=== PATIENT | female | born 1940 | race Caucasian/White ===

== ENCOUNTER 2018-11-12 09:30 | Observation (INO) | payer OTHER ==
--- NOTE | 2018-11-12 09:51 | PDOC ---
Attending Attestation - Resident Resident Name: Darian Duff - ED Attending Attestation I have performed the following: I have examined & evaluated the patient, The case was reviewed & discussed with the resident, I agree w/resident's findings & plan, Exceptions are as noted - HPI HPI: 11/12/18 11:54 78 yo F h/o DM, HTN, CVA in the past She awoke this morning at her baseline She was noted by family to have a syncopal episode while in bed Pt was noted to be unresponsive for 8 minutes No shaking, no tongue biting pt was noted to diaphoretic when this happened Pt now complains only of headache NO chest pain Pt was admitted to outside hospital for the same Work up included CT, MRI, VQ scan - no acute findings reported Plan was for loop recorder - Physicial Exam PE: 11/12/18 11:55 Pt is awake and alert, interactive with examiner RRR, DELORIS noted 3/6 CTA bilaterally, no rhonchi No abdominal tenderness or distention No lower extremity edema - Medical Decision Making 11/12/18 09:53 EKG - NSR rate of 66 bpm, LAD, no st elevation or depression, intervals nml, t wave flattening II, III, aVF, v3-v6, poor R wave progression 11/12/18 11:57 Pt presents with syncopal episode as well as diaphoresis S/p multiple admission to [facility] for similar complaints Unclear cause of patient's presentation Syncope, Seizure, Arrhythmia, Intracranial pathology Will do: Labs, CT head, CXR Admit 11/13/18 18:44 Laboratory Tests 11/12/18 11/12/18 11:30 11:30 WBC 4.9 Hgb 12.5 Hct 38.0 Plt Count 193 BUN 18 Creatinine 0.8 Creatine Kinase 189 Creatine Kinase Index 1.0 CK-MB (CK-2) 2.0 Troponin I < 0.02
--- NOTE | 2018-11-12 09:53 | PDOC ---
History of Present Illness - General Stated Complaint: Syncope/Near Syncope Time Seen by Provider: 11/12/18 09:35 - History of Present Illness Initial Comments: 11/12/18 10:52 Patient is a 78F with history of HTN, DVT (on eliquis), DM, R breast ca, parkinson's, distant stroke here today complaining of syncope that onset this morning. Patient and aide state that she was feeling weak and was diaphoretic before heading up to bed where she became unresponsive. This lasted for ~5 minutes before she regained consciousness, witnessed by aide. No shaking, tongue biting, urinary incontinence was noted. No confusion later. Patient is also complaining of a headache that onset at 2am gradually, located across frontal aspect of head. No fevers, chills, nausea, vomiting, cough, chest pain. Patient was recently admitted and discharged from [facility] for similar presentation. US and CTA negative per patient's family report. Discharged 6 days ago. Past History - Past Medical History Allergies/Adverse Reactions: Allergies Allergy/AdvReac Type Severity Reaction Status Date / Time Iodinated Contrast- Oral and Allergy Verified 11/12/18 10:27 IV Dye Home Medications: Ambulatory Orders Amlodipine Besylate 2.5 mg PO DAILY 11/12/18 Apixaban [Eliquis] 2.5 mg PO BID 11/12/18 Atorvastatin Ca [Lipitor] 10 mg PO HS 11/12/18 Enalapril Maleate [Vasotec] 20 mg PO DAILY 11/12/18 Furosemide [Lasix] 20 mg PO BID 11/12/18 Review of Systems - Review of Systems Able to Perform ROS?: Yes Comments:: 11/12/18 11:29 GENERAL/CONSTITUTIONAL: No fever or chills. No weakness. HEAD, EYES, EARS, NOSE AND THROAT: No change in vision. No sore throat. CARDIOVASCULAR: No chest pain or shortness of breath RESPIRATORY: No cough, wheezing, or hemoptysis. GASTROINTESTINAL: No nausea, vomiting, diarrhea or constipation. GENITOURINARY: No dysuria, frequency, or change in urination. MUSCULOSKELETAL: No joint or muscle swelling or pain. No neck or back pain. SKIN: No rash NEUROLOGIC: +headache, vertigo, +loss of consciousness, no change in strength/ sensation. ENDOCRINE: No increased thirst. No abnormal weight change HEMATOLOGIC/LYMPHATIC: No anemia, easy bleeding, +history of blood clots. ALLERGIC/IMMUNOLOGIC: No hives or skin allergy. *Physical Exam - Physical Exam Comments: 11/12/18 11:31 GENERAL: Awake, alert, and fully oriented, in no acute distress HEAD: No signs of trauma, normocephalic, atraumatic EYES: PERRLA, EOMI, sclera anicteric, conjunctiva clear ENT: Auricles normal inspection, hearing grossly normal, nares patent, oropharynx clear without exudates. Moist mucosa NECK: Normal ROM, supple, no lymphadenopathy, JVD, or masses LUNGS: No distress, speaks full sentences, clear to auscultation bilaterally HEART: Regular rate and rhythm, normal S1 and S2, no murmurs, rubs or gallops, peripheral pulses normal and equal bilaterally. ABDOMEN: Soft, nontender, normoactive bowel sounds. No guarding, no rebound. No masses EXTREMITIES: Normal inspection, Normal range of motion, no edema. No clubbing or cyanosis. NEUROLOGICAL: Cranial nerves II through XII grossly intact. Normal speech, no focal sensorimotor deficits SKIN: Warm, Dry, normal turgor, no rashes or lesions noted. ED Treatment Course - LABORATORY CBC & Chemistry Diagram: 11/12/18 11:30 11/12/18 11:30 Medical Decision Making - Medical Decision Making 11/12/18 11:32 Patient is a 78F with history of HTN, DVT (on eliquis), DM, R breast ca, parkinson's, distant stroke with syncope and headache. Vitals normal and stable. DDx includes, but is not limited to: ACS, arrhythmia, sah. Will evaluate with cardiac workup, head ct, admit for obs. EKG shows NSR with rate of 66. No st elevations/depressions. Left axis deviation. Q waves in inferior and lateral leads. No significant t wave changes. No prior EKGs available for comparison. CBC normal. CMP normal. Trop negative. Patient admitted to obs. *DC/Admit/Observation/Transfer Diagnosis at time of Disposition: Syncope - Discharge Dispostion Condition at time of disposition: Stable Decision to Admit order: Yes - Referrals - Patient Instructions - Post Discharge Activity
[2018-11-12 10:13] VITALS: BMI 28.1
[2018-11-12] MEDS ORDERED: ACETAMINOPHEN 325 MG TABLET (FP) PO ONE (10:46)
[2018-11-12 11:47] LABS: EOS % 1.1 % (0-4.5); HEMOGLOBIN 12.5 GM/dL (10.7-15.3); LYMPH % 21.8 % (8-40); MCH 27.6 pg (25.7-33.7); MCHC 32.7 g/dl (32.0-36.0); MEAN CELL VOLUME 84.3 fl (80-96); MEAN PLT VOLUME 9.5 fl (7.5-11.1); MONO % 7.7 % (3.8-10.2); NEUT % 68.4 % (42.8-82.8); PLATELET COUNT 193 K/MM3 (134-434); RBC 4.51 M/mm3 (3.60-5.2); RDW 14.9 % (11.6-15.6); WHITE BLOOD COUNT 4.9 K/mm3 (4.0-10.0)
[2018-11-12] MEDS ORDERED: ACETAMINOPHEN 325 MG TABLET (FP) ONE (11:55)
[2018-11-12 12:12] LABS: ALBUMIN 3.3 g/dl (3.4-5.0); ALK PHOS 95 U/L (45-117); ANION GAP 6 MMOL/L (8-16); BILIRUBIN,TOTAL 0.4 mg/dL (0.2-1); BLOOD UREA NITROGEN 18 mg/dL (7-18); CHLORIDE 107 mmol/L (98-107); CO2 25 mmol/L (21-32); CREATININE 0.8 mg/dL (0.55-1.3); GLUCOSE,RANDOM 153 mg/dL (74-106); MAGNESIUM 2.1 mg/dL (1.8-2.4); POTASSIUM 4.3 mmol/L (3.5-5.1); SGOT/AST 23 U/L (15-37); SGPT/ALT 22 U/L (13-61); SODIUM 138 mmol/L (136-145); TOT PROT 7.2 g/dl (6.4-8.2)
--- NOTE | 2018-11-12 13:03 | CON.CARD ---
Consult Consult Specialty:: Cardiology Referred by:: ER Reason for Consultation:: Syncope - History of Present Illness Chief Complaint: Syncope History of Present Illness: 78 year old woman with pmh HTN, DVT on eliquis, DMII, HLD, R breast Ca, Parkinsons disease, h/o CVA years ago, recurrent syncope episodes recently admitted 11/04/18-11/07/[address] [facility] with syncope that occurred while sitting down eating with preceding dizziness, sob, diaphoresis and LOC for 5 minutes. She had a recent Holter 05/2018 that was wnl. Echo during recent admission was wnl as below. Nuclear stress test 12/2016 wnl and V/Q scan 11/04/18 showed no evidence of pulmonary embolism. She was recommended to fup with cardiology and neurology and consider an ILR implant. She was discharged home but came to ER today with recurrent episode of syncope witnessed by her CUTTER GAS. Pt was again sitting to eat today when she became ligtheaded, diaphoretic, and lost consciousness. Her CUTTER GAS rubbed her chest and she woke up after approx 5 minutes. She does state her chest is sore currently from the sternal rub her CUTTER GAS performed. Denies sob, palpitations, pnd, orthopnea, or LE edema. No other episodes of chest pain. TTE 11/05/18 Normal left ventricular size. Normal left ventricular wall motion and ejection fraction. Normal right ventricular size. Normal right ventricular function. Technically difficult study. Intravenous echo contrast Definity was administered to improve visualization of wall motion. V/Q 11/04: negative for PE Holter 06/12/18 Sinus Rhythm Atrial premature depolarization(s) Short run(s) of self-terminating atrial tachycardia Ventricular premature depolarizations NM MPI 01/10/17 No evidence of abnormal myocardial perfusion both on stress and rest images. Preserved LV systolic function. TTE 12/19/16: Normal - History Source History Provided By: Patient, Family Member, Caregiver Limitations to Obtaining History: No Limitations - Past Medical History [employer] PROFESSION[employer]: Yes: CVA, Parkinson's, Syncope Cardio/Vascular: Yes: Deep Vein Thrombosis, HTN, Hyperlipdemia Heme/Onc: Yes: Cancer Endocrine: Yes: Diabetes Mellitus - Alcohol/Substance Use Hx Alcohol Use: No - Smoking History Smoking history: Never smoked Have you smoked in the past 12 months: No - Social History Usual Living Arrangement: Other ([facility]) ADL: Support Services History of Recent Travel: No Home Medications - Allergies Allergies/Adverse Reactions: Allergies Allergy/AdvReac Type Severity Reaction Status Date / Time Iodinated Contrast- Oral and Allergy Verified 11/12/18 10:27 IV Dye Family Disease History - Family Disease History Family History: Denies Review of Systems - Review of Systems Constitutional: reports: Diaphoresis, Malaise, Weakness. denies: No Symptoms, Chills, Fever, Lethargy, Loss of Appetite, Night Sweats, Unintentional Wgt. Loss , Other Eyes: denies: No Symptoms, Blind Spots, Blurred Vision, Double Vision, Eye Pain , Floaters, Photophobia, Recent Change in Vision, Other HENT: denies: No Symptoms, Difficult Swallowing, Ear Discharge, Ear Pain, Epistaxis, Gingival Bleeding, Hearing Loss, Mouth Swelling, Nasal Congestion, Ocular Prosthesis, Throat Pain, Toothache, Ringing in Ears, Other Neck: denies: No Symptoms, Decreased ROM, Lumps, Pain on Movement, Stiffness, Swollen Glands, Tenderness, Other Cardiovascular: denies: No Symptoms, Chest Pain, Edema, Palpitations, Shortness of Breath, Other Respiratory: denies: No Symptoms, Cough, Exercise Intolerance, Hemoptysis, Orthopnea, PND, Snoring, SOB, SOB on Exertion, Wheezing, Other Gastrointestinal: denies: No Symptoms, Abdominal Pain, Bloating, Constipation, Diarrhea, Dysphagia, Indigestion, Melena, Nausea, Rectal Bleeding, Vomiting, Vomiting Blood, Other Genitourinary: denies: No Symptoms, Burning, Discharge, Dysuria, Flank Pain, Frequency, Hematuria, Incontinence, Lesions, Menses, Pain, Testicular Mass, Testicular Pain, Testicular Swelling, Urgency, Vaginal Bleeding, Other Breasts: denies: No Symptoms Reported, See HPI, Breast Implants, Discharge from Nipple, Lumps, Pain, Skin Changes, Other Musculoskeletal: denies: No Symptoms, Back Pain, Crepitus, Decreased ROM, Extremity Pain, Joint Pain, Joint Swelling, Muscle Pain, Muscle Cramps, Muscle Weakness, Other Integumentary: denies: No Symptoms, Blister, Bruising, Change in Color, Eczema, Erythema, Incision, Lesions, Lump, Pallor, Pruritis, Rash, Wound, Other Neurological: reports: Change in LOC, Dizziness, Syncope, Weakness. denies: No Symptoms, Change in Speech, Confusion, Headache, Incoordination, Numbness, Parasthesia, Pre-Existing Deficit, Seizure, Tremors, Unsteady Gait, Other Endocrine: denies: No Symptoms, Excessive Sweating, Flushing, Increased Hunger, Increased Thirst, Intolerance to Cold, Intolerance to Heat, Unexplained Weight Gain, Unexplained Weight Loss, Other Hematology/Lymphatic: denies: No Symptoms, Easily Bruised, Excessive Bleeding, Swollen Glands, Other Psychiatric: denies: No Symptoms, Altered Sleep Pattern, Anxiety, Depression, Hallucinations, Panic, Paranoia, Suicidal, Other - Risk Factors Known Risk Factors: Yes: Age, Diabetes Mellitus, Hypercholesterolemia, Hypertension, Prior NH /Emb Stroke Vital Signs: Vital Signs Temperature 98.5 F 11/12/18 10:04 Pulse Rate 65 11/12/18 10:15 Respiratory Rate 16 11/12/18 10:15 Blood Pressure 165/75 11/12/18 10:15 O2 Sat by Pulse Oximetry (%) 100 11/12/18 10:15 Constitutional: Yes: No Distress, Calm Eyes: Yes: Conjunctiva Clear, EOM Intact, PERRL HENT: Yes: Atraumatic, Normocephalic Neck: Yes: Supple, Trachea Midline Respiratory: Yes: Regular, CTA Bilaterally. No: Rales, Rhonchi, SOB, Wheezes Gastrointestinal: Yes: Normal Bowel Sounds, Soft. No: Distention, Tenderness Cardiovascular: Yes: Regular Rate and Rhythm. No: Bradycardia, Tachycardia, Pulse Irregular, Gallop, Rub, Varicosities JVD: No Carotid Bruit: No PMI: Non-Displaced Heart Sounds: Yes: S1, S2. No: Split S2, S3, S4, Clicks, Gallop, Rub, Bruit Murmur: Yes: Systolic Murmur, Grade 2 Musculoskeletal: Yes: Muscle Weakness Extremities: Yes: WNL Edema: Yes Edema: LLE: Trace, RLE: Trace Peripheral Pulses WNL: Yes Peripheral Pulses: 2+ Left Doralis Pedis, 2+ Right Dorsalis Pedis Integumentary: Yes: WNL Neurological: Yes: Alert, Oriented, Tremors Psychiatric: Yes: Alert, Oriented - Other Data Labs, Other Data: CBC, BMP 11/12/18 11:30 11/12/18 11:30 INR, PTT INR Cancelled 11/12/18 11:30 Troponin, BNP 11/12/18 11:30 Troponin I < 0.02 Troponin, BNP 11/12/18 11:30 Troponin I < 0.02 ekg nsr 66bpm, lad, inferior and lateral q waves Echo: Report Reviewed Imaging - Results Chest X-ray: Report Reviewed, Image Reviewed EKG: Report Reviewed, Image Reviewed Other: Report Reviewed, Image Reviewed Assessment/Plan 78 year old woman with pmh HTN, DVT on eliquis, DMII, HLD, R breast Ca, Parkinsons disease, h/o CVA years ago, recurrent syncope episodes recently admitted 11/04/18-11/07/[address] [facility] with syncope that occurred while sitting down eating with preceding dizziness, sob, diaphoresis and LOC for 5 minutes. She had a recent Holter 05/2018 that was wnl. Echo during recent admission was wnl as below. Nuclear stress test 12/2016 wnl and V/Q scan 11/04/18 showed no evidence of pulmonary embolism. She was recommended to fup with cardiology and neurology and consider an ILR implant. She was discharged home but came to ER today with recurrent episode of syncope witnessed by her CUTTER GAS. Pt was again sitting to eat today when she became ligtheaded, diaphoretic, and lost consciousness. Her CUTTER GAS rubbed her chest and she woke up after approx 5 minutes. She does state her chest is sore currently from the sternal rub her CUTTER GAS performed. Denies sob, palpitations, pnd, orthopnea, or LE edema. No other episodes of chest pain. TTE 11/05/18 Normal left ventricular size. Normal left ventricular wall motion and ejection fraction. Normal right ventricular size. Normal right ventricular function. Technically difficult study. Intravenous echo contrast Definity was administered to improve visualization of wall motion. V/Q 11/04: negative for PE Holter 06/12/18 Sinus Rhythm Atrial premature depolarization(s) Short run(s) of self-terminating atrial tachycardia Ventricular premature depolarizations NM MPI 01/10/17 No evidence of abnormal myocardial perfusion both on stress and rest images. Preserved LV systolic function. TTE 12/19/16: Normal Syncope-uncertain etiology -not c/w ACS, admitted last week with same symptoms, cardiac enzymes wnl, no ischemia on ekg, echo overall normal, normal stress test 2016 -occurs usually while eating -vaso vagal vs parkinsons related dysautonomic dysfunction with possible post prandial hypotension vs arrhythmia -echo done last week as above showed no sig structural heart disease -Holter 05/2018 no arrhythmias -V/Q scan last week no PE -monitor on tele overnight -do not need to repeat echo -Neurology evaluation -check orthostatic BP and check VS with next meal -if no arrhythmias on tele overnight would recc outpatient longer term event monitor and if no recurrent event during the monitoring period would recommend an ILR implant for longer term monitoring, beyond that would then consider a tilt table test.
[2018-11-12 13:49] LABS: INR 1.13 (0.83-1.09); PROTHROMBIN TIME (PATIENT) 13.4 SEC (9.7-13.0)
--- NOTE | 2018-11-12 15:08 | HP ---
CHIEF COMPLAINT: Syncope, Dizziness PCP: HISTORY OF PRESENT ILLNESS: The patient is a 78 yo f w/ PMH HTN, DVT (on eliquis), DM, Breast cancer, parkinson's, previous CVA who comes into the ED c/o an episode of syncope today. The patient is a poor historian and the majority of the history was obtained by her aide at bedside, who witnessed the episode. This morning, the patient stated that she felt weak and wished to go to bed. After getting to her bed, the patient passed out and became unresponsive and fell back onto her bed. She did not hit her head or any other body part. The patient remained unresponsive for approx. 5 mins and had no tongue biting, loss of bladder or bowel or shaking movements. The episode resolved spontaneously and the aide called EMS. The patient had a similar episode last Sunday and was admitted to [facility] for 3 days for workup. Per the patient's aide, she had several tests during this time, including US, MRI and CTA. The patient's aide states that the doctors there told them that "everything was normal." The aide goes on to mention that the patient has also has been having some difficulties with memory since last Sunday. During the interview, the patient states that she feels weak, dizzy and fatigued. Patient denies chest pain, SOB, abdominal pain, dysuria Recent Travel: none PAST MEDICAL HISTORY: see HPI PAST SURGICAL HISTORY: Social History: Smoking: denies Alcohol: denies Drugs: denies Family History: non-contributory Allergies Iodinated Contrast- Oral and IV Dye Allergy (Verified 11/12/18 10:27) HOME MEDICATIONS: REVIEW OF SYSTEMS CONSTITUTIONAL: Absent: fever, chills, diaphoresis, loss of appetite, weight change HEENT: Absent: rhinorrhea, nasal congestion, throat pain, throat swelling, difficulty swallowing, mouth swelling, ear pain, eye pain, visual changes CARDIOVASCULAR: Absent: chest pain, palpitations, irregular heart rate, lightheadedness, peripheral edema RESPIRATORY: Absent: cough, shortness of breath, dyspnea with exertion, orthopnea, wheezing, stridor, hemoptysis GASTROINTESTINAL: Absent: abdominal pain, abdominal distension, nausea, vomiting, diarrhea, constipation, melena, hematochezia GENITOURINARY: Absent: dysuria, frequency, urgency, hesitancy, hematuria, flank pain, genital pain MUSCULOSKELETAL: Absent: myalgia, arthralgia, joint swelling, back pain, neck pain SKIN: Absent: rash, itching, pallor HEMATOLOGIC/IMMUNOLOGIC: Absent: easy bleeding, easy bruising, lymphadenopathy, frequent infections ENDOCRINE: Absent: unexplained weight gain, unexplained weight loss, heat intolerance, cold intolerance NEUROLOGIC: Absent: headache, focal weakness or paresthesias, dizziness, unsteady gait, seizure, mental status changes, bladder or bowel incontinence PSYCHIATRIC: Absent: anxiety, depression, suicidal or homicidal ideation, hallucinations. PHYSICAL EXAMINATION Vital Signs - 24 hr 11/12/18 11/12/18 10:04 10:15 Temperature 98.5 F Pulse Rate 65 65 Respiratory 16 16 Rate Blood Pressure 165/75 165/75 O2 Sat by Pulse 100 100 Oximetry (%) GENERAL: Awake, alert, and fully oriented, in no acute distress. HEAD: Normal with no signs of trauma. EYES: Pupils equal, round and reactive to light, extraocular movements intact, sclera anicteric, conjunctiva clear. No lid lag. EARS, NOSE, THROAT: Ears normal, nares patent, oropharynx clear without exudates. Moist mucous membranes. NECK: Normal range of motion, supple without lymphadenopathy, JVD, or masses. LUNGS: Breath sounds equal, clear to auscultation bilaterally. No wheezes, and no crackles. No accessory muscle use. HEART: Regular rate and rhythm, normal S1 and S2. Systolic murmur heard at the RUSB without radiation. ABDOMEN: Soft, nontender, not distended, normoactive bowel sounds, no guarding, no rebound, no masses. No hepatomegaly or splenomegaly. LOWER EXTREMITIES: 2+ pulses, warm, well-perfused. No calf tenderness. 1+ peripheral edema. NEUROLOGICAL: Cranial nerves II-X intact. Normal speech. Strength 5/5 in all 4 extremities SKIN: Warm, dry, normal turgor, no rashes or lesions noted, normal capillary refill. Laboratory Results - last 24 hr 11/12/18 11/12/18 11/12/18 11:30 11:30 11:30 WBC 4.9 RBC 4.51 Hgb 12.5 Hct 38.0 MCV 84.3 MCH 27.6 MCHC 32.7 RDW 14.9 Plt Count 193 MPV 9.5 Absolute Neuts (auto) 3.4 Neutrophils % 68.4 Lymphocytes % 21.8 Monocytes % 7.7 Eosinophils % 1.1 Basophils % 1.0 Nucleated RBC % 0 PT with INR Cancelled INR Cancelled Sodium 138 Potassium 4.3 Chloride 107 Carbon Dioxide 25 Anion Gap 6 L BUN 18 Creatinine 0.8 Creat Clearance w eGFR 69.55 Random Glucose 153 H Calcium 9.0 Magnesium 2.1 Total Bilirubin 0.4 AST 23 ALT 22 Alkaline Phosphatase 95 Creatine Kinase 189 Creatine Kinase Index 1.0 CK-MB (CK-2) 2.0 Troponin I < 0.02 Total Protein 7.2 Albumin 3.3 L 11/12/18 13:10 WBC RBC Hgb Hct MCV MCH MCHC RDW Plt Count MPV Absolute Neuts (auto) Neutrophils % Lymphocytes % Monocytes % Eosinophils % Basophils % Nucleated RBC % PT with INR 13.40 H INR 1.13 H Sodium Potassium Chloride Carbon Dioxide Anion Gap BUN Creatinine Creat Clearance w eGFR Random Glucose Calcium Magnesium Total Bilirubin AST ALT Alkaline Phosphatase Creatine Kinase Creatine Kinase Index CK-MB (CK-2) Troponin I Total Protein Albumin ASSESSMENT/PLAN: The patient is a 78 yo f w/ PMH HTN, DVT (on eliquis), DM, Breast cancer, parkinson's, previous CVA who comes into the ED c/o an episode of syncope today. #Dizziness/Syncope -Evaluated by cardiology, had the following recommendations: -Echo 12/27 WNL -s/p holter monitoring 05/30 w/o arrythmia -Stress test 01/10/17 WNL -No RPT echo required -observe on tele -will order orthostatics -will consult neurology- Dr. Dey -Will obtain records from [facility] to avoid repeat testing #DM -BGM ACHS -ISS ACHS #HTN -holding home HTN meds while patient dizzy #H/O DVT -c/w home Eliquis #FEN -no fluids indicated -lytes WNL -diabetic diet #Prophy -on home Eliquis #Dispo -observe on telemetry -Medications reconciled from cardio records Visit type - Emergency Visit Emergency Visit: Yes ED Registration Date: 11/12/18 Care time: The patient presented to the Emergency Department on the above date and was hospitalized for further evaluation of their emergent condition. - New Patient This patient is new to me today: Yes Date on this admission: 11/12/18 - Critical Care Critical Care patient: No
--- NOTE | 2018-11-12 16:08 | PN ---
Teaching Attending Note Name of Resident: Santos Parada ATTENDING PHYSICIAN STATEMENT I saw and evaluated the patient. I reviewed the resident's note and discussed the case with the resident. I agree with the resident's findings and plan as documented. SUBJECTIVE: The patient is a 78 yo female with PMHx HTN, DVT (on eliquis), DM, Breast cancer , parkinson's, previous CVA who comes into the ED with withnessed syncopal event by her son which lasted for 6 seconds. Patient was hospitalized at [facility] last month and as per cardio. most of w/u was done at [facility]. OBJECTIVE: Vital Signs Temperature 98.5 F 11/12/18 10:04 Pulse Rate 65 11/12/18 10:15 Respiratory Rate 16 11/12/18 10:15 Blood Pressure 165/75 11/12/18 10:15 O2 Sat by Pulse Oximetry (%) 100 11/12/18 10:15 Initial Vital Signs Temp Pulse Resp BP Pulse Ox 98.5 F 65 16 165/75 100 11/12/18 10:04 11/12/18 10:04 11/12/18 10:04 11/12/18 10:04 11/12/18 10:04 GENERAL: Awake, alert, and fully oriented, in no acute distress. HEAD: Normal with no signs of trauma. EYES: Pupils equal, round and reactive to light, extraocular movements intact, sclera anicteric, conjunctiva clear. EARS, NOSE, THROAT: Ears normal, oropharynx clear without exudates. Moist mucous membranes. NECK: Normal range of motion, supple without lymphadenopathy, JVD, or masses. LUNGS: Breath sounds equal, clear to auscultation bilaterally. No wheezes, and no crackles. No accessory muscle use. HEART: Regular rate and rhythm, normal S1 and S2. DELORIS 3/6. ABDOMEN: Soft, nontender, not distended, normoactive bowel sounds, no guarding, no rebound, no masses. LOWER EXTREMITIES: 2+ pulses, warm, well-perfused. No calf tenderness. 1+ non pitting edema. NEUROLOGICAL: Cranial nerves II-X intact. Normal speech. Strength 5/5 in all 4 extremities SKIN: Warm, dry, normal turgor, no rashes or lesions noted, normal capillary refill. CBCD WBC 4.9 K/mm3 (4.0-10.0) 11/12/18 11:30 RBC 4.51 M/mm3 (3.60-5.2) 11/12/18 11:30 Hgb 12.5 GM/dL (10.7-15.3) 11/12/18 11:30 Hct 38.0 % (32.4-45.2) 11/12/18 11:30 MCV 84.3 fl (80-96) 11/12/18 11:30 MCHC 32.7 g/dl (32.0-36.0) 11/12/18 11:30 RDW 14.9 % (11.6-15.6) 11/12/18 11:30 Plt Count 193 K/MM3 (134-434) 11/12/18 11:30 MPV 9.5 fl (7.5-11.1) 11/12/18 11:30 CMP Sodium 138 mmol/L (136-145) 11/12/18 11:30 Potassium 4.3 mmol/L (3.5-5.1) 11/12/18 11:30 Chloride 107 mmol/L (98-107) 11/12/18 11:30 Carbon Dioxide 25 mmol/L (21-32) 11/12/18 11:30 Anion Gap 6 MMOL/L (8-16) L 11/12/18 11:30 BUN 18 mg/dL (7-18) 11/12/18 11:30 Creatinine 0.8 mg/dL (0.55-1.3) 11/12/18 11:30 Creat Clearance w eGFR 69.55 (>60) 11/12/18 11:30 Random Glucose 153 mg/dL (74-106) H 11/12/18 11:30 Calcium 9.0 mg/dL (8.5-10.1) 11/12/18 11:30 Total Bilirubin 0.4 mg/dL (0.2-1) 11/12/18 11:30 AST 23 U/L (15-37) 11/12/18 11:30 ALT 22 U/L (13-61) 11/12/18 11:30 Alkaline Phosphatase 95 U/L (45-117) 11/12/18 11:30 Total Protein 7.2 g/dl (6.4-8.2) 11/12/18 11:30 Albumin 3.3 g/dl (3.4-5.0) L 11/12/18 11:30 CARDIAC ENZYMES Creatine Kinase 189 U/L (26-192) 11/12/18 11:30 Troponin I < 0.02 ng/ml (0.00-0.05) 11/12/18 11:30 Current Medications Generic Name Dose Route Start Last Admin Trade Name Tessy PRN Reason Stop Dose Admin Insulin Aspart 1 vial 11/12/18 16:30 Novolog Vial Sliding Scale - SQ ACHS BEVERLY Protocol Home Medications Medication Instructions Recorded Amlodipine Besylate 2.5 mg PO DAILY 11/12/18 Apixaban [Eliquis] 2.5 mg PO BID 11/12/18 Atorvastatin Ca [Lipitor] 10 mg PO HS 11/12/18 Enalapril Maleate [Vasotec] 20 mg PO DAILY 11/12/18 Furosemide [Lasix] 20 mg PO BID 11/12/18 per cardio: TTE 11/05/18 Normal left ventricular size. Normal left ventricular wall motion and ejection fraction. Normal right ventricular size. Normal right ventricular function. Technically difficult study. Intravenous echo contrast Definity was administered to improve visualization of wall motion. V/Q 11/04: negative for PE Holter 06/12/18 Sinus Rhythm Atrial premature depolarization(s) Short run(s) of self-terminating atrial tachycardia Ventricular premature depolarizations NM MPI 01/10/17 No evidence of abnormal myocardial perfusion both on stress and rest images. Preserved LV systolic function. TTE 12/19/16: Normal ASSESSMENT AND PLAN: The patient is a 78 yo female with Pmhx HTN, DVT (on eliquis), DM, Breast cancer , parkinson's, previous CVA who comes to ED, with witnessed syncope by her son , which lasted for 6 seconds. As per son this events has been happening when she is eating. #Dizziness/Syncope uncertain etiology; vasovagal vs Parkinsonism due to dysautonomic dysfunction , document orthostatics blood pressure to be documented , neuro consult: Dr. Dey , cardio consult appreciated. as per son while eating patient develops the symptoms, will order swallowing evalation (mahi eid for consult) #elevated blood sugar :will check hemoglobin A1c ,BGM ACHS with sliding scale with coverage #HTN continue with holding parameter continue Vasotec #H/O DVT: continue Eliquis DVT px: Eliquis per cardio recommendations: -do not need to repeat echo -check orthostatic BP and check VS with next meal -if no arrhythmias on tele overnight would recommend outpatient longer term event monitor and if no recurrent event during the monitoring period would recommend an ILR implant for longer term monitoring, beyond that would then consider a tilt table test. check tsh, free t4, swallowing evaluation hemoglobin A1c
[2018-11-12] MEDS: INSULIN SLIDING SCALE (NOVOLOG) 1 VIAL SQ SCH ×2 (17:13→23:20)
[2018-11-12] MEDS ORDERED: INSULIN (NOVOLOG) ASPART 100 UNITS/ML 10ML VIAL ONE ×2 (17:20→23:17)
[2018-11-12] MEDS ORDERED: ACETAMINOPHEN 325 MG TABLET (FP) PO PRN (19:05)
[2018-11-12] MEDS ORDERED: ATORVASTATIN CA 10 MG TABLET (FP) PO SCH (22:00)
[2018-11-12] MEDS ORDERED: FUROSEMIDE 40 MG TABLET (FP) ONE (23:02)
[2018-11-12] MEDS ORDERED: APIXABAN 5 MG TABLET PO ONE (23:02)
[2018-11-12] MEDS ORDERED: ATORVASTATIN CA 10 MG TABLET (FP) ONE (23:03)
[2018-11-12] MEDS: APIXABAN 2.5 MG TABLET PO SCH (23:10)
[2018-11-12] MEDS: FUROSEMIDE 20 MG TABLET (FP) PO SCH (23:10)
[2018-11-13] MEDS: FUROSEMIDE 20 MG TABLET (FP) PO SCH (06:37)
[2018-11-13] MEDS: INSULIN SLIDING SCALE (NOVOLOG) 1 VIAL SQ SCH ×3 (06:37→17:57)
[2018-11-13 08:05] LABS: HEMATOCRIT 36.8 % (32.4-45.2); HEMOGLOBIN 11.9 GM/dL (10.7-15.3); MCH 27.1 pg (25.7-33.7); MCHC 32.4 g/dl (32.0-36.0); MEAN CELL VOLUME 83.8 fl (80-96); MEAN PLT VOLUME 9.7 fl (7.5-11.1); PLATELET COUNT 183 K/MM3 (134-434); RBC 4.39 M/mm3 (3.60-5.2); RDW 15.2 % (11.6-15.6); WHITE BLOOD COUNT 5.3 K/mm3 (4.0-10.0)
[2018-11-13 08:19] LABS: INR 1.23 (0.83-1.09); PROTHROMBIN TIME (PATIENT) 14.6 SEC (9.7-13.0)
[2018-11-13 08:21] LABS: ACTIVATED PTT 35.1 SECONDS (25.2-36.5)
[2018-11-13 08:24] LABS: ALBUMIN 3.1 g/dl (3.4-5.0); ALK PHOS 87 U/L (45-117); ANION GAP 8 MMOL/L (8-16); BILIRUBIN,TOTAL 0.4 mg/dL (0.2-1); BLOOD UREA NITROGEN 17 mg/dL (7-18); CALCIUM 8.2 mg/dL (8.5-10.1); CHLORIDE 110 mmol/L (98-107); CO2 26 mmol/L (21-32); GLUCOSE,RANDOM 91 mg/dL (74-106); PHOSPHOROUS 3.3 mg/dL (2.5-4.9); POTASSIUM 4.1 mmol/L (3.5-5.1); SGOT/AST 17 U/L (15-37); SGPT/ALT 20 U/L (13-61); SODIUM 143 mmol/L (136-145); TOT PROT 6.2 g/dl (6.4-8.2)
[2018-11-13] MEDS: APIXABAN 2.5 MG TABLET PO SCH (09:23)
[2018-11-13] MEDS ORDERED: amLODIPine BESYLATE 2.5 MG TABLET (FP) PO SCH (10:00)
[2018-11-13] MEDS ORDERED: ENALAPRIL MALEATE 10 MG TABLET (FP) PO SCH (10:00)
--- NOTE | 2018-11-13 10:12 | EKG ---
Test Reason : Blood Pressure : / mmHG Vent. Rate : 066 BPM Atrial Rate : 066 BPM P-R Int : 150 ms QRS Dur : 082 ms QT Int : 424 ms P-R-T Axes : 053 -59 -07 degrees QTc Int : 444 ms POOR DATA QUALITY, INTERPRETATION MAY BE ADVERSELY AFFECTED NORMAL SINUS RHYTHM LEFT AXIS DEVIATION LATERAL INFARCT , AGE UNDETERMINED INFERIOR-POSTERIOR INFARCT , AGE UNDETERMINED ABNORMAL ECG NO PREVIOUS ECGS AVAILABLE Confirmed by MIRA HAN, ROSIO ([id number]) on 11/13/2018 10:12:09 AM Referred By: Confirmed By:ROSIO MEYESR MD
--- NOTE | 2018-11-13 10:35 | CONSULT ---
Admitting History and Physical - Primary Care Physician PCP: Kailey Bolton - Admission History of Present Illness: Patient is a 78F with history of HTN, DVT (on eliquis), DM, R breast ca, Parkinson's, distant stroke admitted following syncopal event. Recent discharge from [facility] for similar presentation and w/u. History Source: Patient, Medical Record Limitations to Obtaining History: No Limitations (Pt reports impaired memory. 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, Parkinson's, Syncope Cardiovascular: Yes: Deep Vein Thrombosis, HTN, Hyperlipdemia ...: No Heme/Onc: Yes: Cancer Endocrine: Yes: Diabetes Mellitus - Advance Directives Advance Directives: Yes: Health Care Proxy - Smoking History Smoking history: Former smoker Have you smoked in the past 12 months: No - Alcohol/Substance Use Hx Alcohol Use: No - Social History ADL: Support Services History of Recent Travel: No History - Admission Reason For Visit: SYNCOPE - Diagnostics X-ray: Report Reviewed CT Scan: Report Reviewed - General Mental Status: Alert and Oriented, Awake and Alert, Able to Follow Commands Attention: Intact Ability to Follow Directions: Excellent Head/Neck Control: WFL - Hearing Hearing: Impaired Hearing Aide: No With Patient: No Speech Evaluation - Communication Primary Language: ARMENIAN Communication: Yes: Within Normal Limits, Language Barrier Oral Expression Ability: Yes: No Impairment - Speech Production Able to Make Needs Known: Yes: WNL Intelligibility: Yes: WNL - Speech Characteristics Voice Loudness: Normal Voice Pitch: Yes: Normal Voice Phonatory-based Quality: Yes: Normal Speech Pattern: Normal Speech Clarity: < 100% Nasal Resonance: Normal Articulation: Yes: Precise - Language/Auditory Comprehension Follows: Yes: 1 Stage Simple Commands, 2 Stage Simple Commands Observation: Able to respond to yes/no queries: Yes, Yes/No Confusion: No, Comprehends Conversational Speech: Yes - Language/Verbal Expression Able to Respond to Simple Queries: Yes: WNL Able to Communicate Wants and Needs: Yes: WNL Functional Communication Status: Yes: WNL Attention: Yes: Intact - Swallow Evaluation/Bedside Assessment Current Nutritional Intake: Regular, Thin Liquids Oral Secretions: Yes: WFL Dentition: Yes: Edentulous (lower. Dentures lost in the past), Dental Appliance Upper Facial Symmetry at Rest: Symmetrical Facial Symmetry on Retraction: Symmetrical Facial Movement: Controlled Sensation: Normal Against Resistance Opening: Normal Against Resistance Closing: Normal Pucker Lips: Normal Smile: Normal Lingual Movement: Normal, Symmetric Lingual Speed of Movement: Normal Lingual Movement Strgth Against Opposition: Normal Lingual Movement Characteristics: Normal Velopharyngeal Movement: Normal Laryngeal Elevation: WFL Laryngeal Movement: Able to Palpate Rate of Intake: WFL Bolus Size: WFL Labial Seal: WFL Chewing: WFL Oral Prep Time: WFL A-P Transit: WFL Pocketing: None Timing of Swallow: WFL Coughing/Throat Clear: No Change in Voice: No Recommendations - Speech Evaluation, Impression/Plan Impression: Functional communication is unimpaired. Pt reports memory deficits, not remembering certain events. ST/LT memory not assessed today. Pt is appropriate and oriented with overtly good insight and reasoning. Able to name, repeat,converse, follow directives. - Dysphagia Impressions/Plan Swallowing Skills: WFL Dysphagia Impressions: No Impairment *Silent aspiration: cannot be R/O at bedside - Recommendations Diet Consistency: Regular (soft, edentulous lower) Medication Administration: Whole with water Liquids: Thin Liquids
--- NOTE | 2018-11-13 11:03 | PN ---
Physical Exam: SUBJECTIVE: Patient seen and examined OBJECTIVE: Vital Signs Period Temp Pulse Resp BP Sys/Mixon Pulse Ox Last 24 Hr 97.8 F-98.8 F 58-89 18-20 141-187/72-86 97-98 GENERAL: The patient is awake, alert, and fully oriented, in no acute distress. HEAD: Normal with no signs of trauma. EYES: PERRL, extraocular movements intact, sclera anicteric, conjunctiva clear. No ptosis. ENT: Ears normal, nares patent, oropharynx clear without exudates, moist mucous membranes. NECK: Trachea midline, full range of motion, supple. LUNGS: Breath sounds equal, clear to auscultation bilaterally, no wheezes, no crackles, no accessory muscle use. HEART: Regular rate and rhythm, S1, S2 without murmur, rub or gallop. ABDOMEN: Soft, nontender, nondistended, normoactive bowel sounds, no guarding, no rebound, no hepatosplenomegaly, no masses. EXTREMITIES: 2+ pulses, warm, well-perfused, no edema. NEUROLOGICAL: Cranial nerves II through XII grossly intact. Normal speech, gait not observed. PSYCH: Normal mood, normal affect. SKIN: Warm, dry, normal turgor, no rashes or lesions noted Laboratory Results - last 24 hr 11/12/18 11/12/18 11/12/18 11:30 11:30 11:30 WBC 4.9 RBC 4.51 Hgb 12.5 Hct 38.0 MCV 84.3 MCH 27.6 MCHC 32.7 RDW 14.9 Plt Count 193 MPV 9.5 Absolute Neuts (auto) 3.4 Neutrophils % 68.4 Lymphocytes % 21.8 Monocytes % 7.7 Eosinophils % 1.1 Basophils % 1.0 Nucleated RBC % 0 PT with INR Cancelled INR Cancelled PTT (Actin FS) Sodium 138 Potassium 4.3 Chloride 107 Carbon Dioxide 25 Anion Gap 6 L BUN 18 Creatinine 0.8 Creat Clearance w eGFR 69.55 POC Glucometer Random Glucose 153 H Hemoglobin A1c % Calcium 9.0 Phosphorus Magnesium 2.1 Total Bilirubin 0.4 AST 23 ALT 22 Alkaline Phosphatase 95 Creatine Kinase 189 Creatine Kinase Index 1.0 CK-MB (CK-2) 2.0 Troponin I < 0.02 Total Protein 7.2 Albumin 3.3 L TSH 11/12/18 11/12/1811/12/19 13:10 17:10 23:12 WBC RBC Hgb Hct MCV MCH MCHC RDW Plt Count MPV Absolute Neuts (auto) Neutrophils % Lymphocytes % Monocytes % Eosinophils % Basophils % Nucleated RBC % PT with INR 13.40 H INR 1.13 H PTT (Actin FS) Sodium Potassium Chloride Carbon Dioxide Anion Gap BUN Creatinine Creat Clearance w eGFR POC Glucometer 153 166 Random Glucose Hemoglobin A1c % Calcium Phosphorus Magnesium Total Bilirubin AST ALT Alkaline Phosphatase Creatine Kinase Creatine Kinase Index CK-MB (CK-2) Troponin I Total Protein Albumin TSH 11/13/18 11/13/18 11/13/18 05:42 06:00 06:00 WBC 5.3 RBC 4.39 Hgb 11.9 Hct 36.8 MCV 83.8 MCH 27.1 MCHC 32.4 RDW 15.2 Plt Count 183 MPV 9.7 Absolute Neuts (auto) Neutrophils % Lymphocytes % Monocytes % Eosinophils % Basophils % Nucleated RBC % PT with INR 14.60 H INR 1.23 H PTT (Actin FS) 35.1 Sodium Potassium Chloride Carbon Dioxide Anion Gap BUN Creatinine Creat Clearance w eGFR POC Glucometer 104 Random Glucose Hemoglobin A1c % Calcium Phosphorus Magnesium Total Bilirubin AST ALT Alkaline Phosphatase Creatine Kinase Creatine Kinase Index CK-MB (CK-2) Troponin I Total Protein Albumin TSH 11/13/18 11/13/18 06:00 06:00 WBC RBC Hgb Hct MCV MCH MCHC RDW Plt Count MPV Absolute Neuts (auto) Neutrophils % Lymphocytes % Monocytes % Eosinophils % Basophils % Nucleated RBC % PT with INR INR PTT (Actin FS) Sodium 143 Potassium 4.1 Chloride 110 H Carbon Dioxide 26 Anion Gap 8 BUN 17 Creatinine 1.0 Creat Clearance w eGFR 53.76 POC Glucometer Random Glucose 91 Hemoglobin A1c % 6.2 Calcium 8.2 L Phosphorus 3.3 Magnesium 2.0 Total Bilirubin 0.4 AST 17 ALT 20 Alkaline Phosphatase 87 Creatine Kinase Creatine Kinase Index CK-MB (CK-2) Troponin I Total Protein 6.2 L Albumin 3.1 L TSH 1.60 Active Medications Generic Name Dose Route Start Last Admin Trade Name Freq PRN Reason Stop Dose Admin Acetaminophen 650 mg 11/12/18 19:05 Tylenol - PO Q6H PRN PAIN LEVEL 7 - 10 Amlodipine Besylate 2.5 mg 11/13/18 10:00 04/03/19 09:25 Norvasc - PO 2.5 mg DAILY BEVERLY Administration Apixaban 2.5 mg 11/12/18 22:00 11/13/18 09:23 Eliquis - PO 2.5 mg BID BEVERLY Administration Atorvastatin Calcium 10 mg 11/12/18 22:00 11/12/18 23:10 Lipitor - PO 10 mg HS BEVERLY Administration Enalapril Maleate 20 mg 11/13/18 10:00 11/13/18 09:24 Vasotec - PO 20 mg DAILY BEVERLY Administration Furosemide 20 mg 11/12/18 22:00 11/13/18 06:37 Lasix - PO 20 mg BIDLASIX BEVERLY Administration Insulin Aspart 1 vial 11/12/18 16:30 11/13/18 06:37 Novolog Vial Sliding Scale - SQ Not Given ACHS BEVERLY Protocol ASSESSMENT/PLAN:
[2018-11-13] MEDS ORDERED: SODIUM CHLORIDE 1,000 ML IV SCH ×2 (12:30→15:15)
--- NOTE | 2018-11-13 14:36 | PN ---
Progress Note, Physician Chief Complaint: Cardiology FU Telem NSR. Occasional sinus bradycardia. No pauses. Vital document one sitting BP without significant orthostatic decline. History of Present Illness: 78 year old woman with pmh HTN, DVT on eliquis, DMII, HLD, R breast Ca, Parkinsons disease, h/o CVA years ago, recurrent syncope episodes recently admitted 11/04/18-11/07/18 at [facility] with syncope that occurred while sitting down eating with preceding dizziness, sob, diaphoresis and LOC for 5 minutes. She had a recent Holter 05/2018 that was wnl. Echo during recent admission was wnl as below. Nuclear stress test 12/2016 wnl and V/Q scan 11/04/18 showed no evidence of pulmonary embolism. She was recommended to fup with cardiology and neurology and consider an ILR implant. She was discharged home but came to ER today with recurrent episode of syncope witnessed by her RETAIL CLIENT SOLUTIONS CONSULTANT. Pt was again sitting to eat today when she became ligtheaded, diaphoretic, and lost consciousness. Her RETAIL CLIENT SOLUTIONS CONSULTANT rubbed her chest and she woke up after approx 5 minutes. She does state her chest is sore currently from the sternal rub her RETAIL CLIENT SOLUTIONS CONSULTANT performed. Denies sob, palpitations, pnd, orthopnea, or LE edema. No other episodes of chest pain. - Current Medication List Current Medications: Active Medications Acetaminophen (Tylenol -) 650 mg PO Q6H PRN PRN Reason: PAIN LEVEL 7 - 10 Amlodipine Besylate (Norvasc -) 2.5 mg PO DAILY [facility] Last Admin: 11/13/18 09:25 Dose: 2.5 mg Apixaban (Eliquis -) 2.5 mg PO BID [facility] Last Admin: 11/13/18 09:23 Dose: 2.5 mg Atorvastatin Calcium (Lipitor -) 10 mg PO HS [facility] Last Admin: 11/12/18 23:10 Dose: 10 mg Enalapril Maleate (Vasotec -) 20 mg PO DAILY [facility] Last Admin: 11/13/18 09:24 Dose: 20 mg Insulin Aspart (Novolog Vial Sliding Scale -) 1 vial SQ [facility]; Protocol Last Admin: 11/13/18 11:52 Dose: Not Given - Objective Vital Signs: Vital Signs Temperature 98.8 F 11/13/18 09:31 Pulse Rate 58 L 04/03/19 09:31 Respiratory Rate 20 11/13/18 09:31 Blood Pressure 162/72 11/13/18 09:31 O2 Sat by Pulse Oximetry (%) 98 11/12/18 23:42 Constitutional: Yes: Well Nourished, No Distress Eyes: Yes: Conjunctiva Clear HENT: Yes: Atraumatic, Normocephalic Neck: Yes: Supple, Trachea Midline Cardiovascular: Yes: Regular Rate and Rhythm Respiratory: Yes: Regular, CTA Bilaterally Gastrointestinal: Yes: Normal Bowel Sounds Edema: No Labs: CBC, BMP 11/13/18 06:00 11/13/18 06:00 INR, PTT INR 1.23 (0.83-1.09) H 11/13/18 06:00 Problem List - Problems (1) Syncope Code(s): R55 - SYNCOPE AND COLLAPSE Assessment/Plan 78 year old woman with pmh HTN, DVT on eliquis, DMII, HLD, R breast Ca, Parkinsons disease, h/o CVA years ago, recurrent syncope episodes recently admitted 11/04/18-11/07/18 at [facility] with syncope that occurred while sitting down eating with preceding dizziness, sob, diaphoresis and LOC for 5 minutes. She had a recent Holter 05/2018 that was wnl. Echo during recent admission was wnl as below. Nuclear stress test 12/2016 wnl and V/Q scan 11/04/18 showed no evidence of pulmonary embolism. She was recommended to fup with cardiology and neurology and consider an ILR implant. She was discharged home but came to ER today with recurrent episode of syncope witnessed by her RETAIL CLIENT SOLUTIONS CONSULTANT. Pt was again sitting to eat today when she became ligtheaded, diaphoretic, and lost consciousness. Her RETAIL CLIENT SOLUTIONS CONSULTANT rubbed her chest and she woke up after approx 5 minutes. She does state her chest is sore currently from the sternal rub her RETAIL CLIENT SOLUTIONS CONSULTANT performed. Denies sob, palpitations, pnd, orthopnea, or LE edema. No other episodes of chest pain. Recurrent bouts of syncope without clear source. Plan is for patient to have termite technician event monitor placement. We will arrange for this-she is known to one of our office staff and will deliver to her house. To also consider implantable loop recorder if event monitor is unrevealing. Dysautonomia due to parkinsons disease is also a possibility. She has mild HTN-given recurrent syncope would not reduce her BP significantly until issue is resolved. Will see her as needed.
[2018-11-13 15:39] VITALS: BP 145/76; PULSE 62; TEMP 99.1
--- NOTE | 2018-11-13 16:19 | PN ---
Teaching Attending Note Name of Resident: Fernie Mayfield ATTENDING PHYSICIAN STATEMENT I saw and evaluated the patient. I reviewed the resident's note and discussed the case with the resident. I agree with the resident's findings and plan as documented. SUBJECTIVE: No fever or chills . No REEVES . has no pain . no SOB OBJECTIVE: NAD Cv: RRR Lungs: CTAB Ext : no edema or erythema Abd: soft, NT, ND, NL BS ASSESSMENT AND PLAN: 78 y/o lady with h/o HTN, DVT, DM, DVT ,breast cancer and parkinson's who resented with recurrent syncope . 1- syncope : unclear etiology. ? arrhythmias vs prstprandial vasovagal syncope. earlier today VS done by residents showed orthostatic drop with increase in heart rate. - gave 250 cc of IVF and patient stil has orthosttaic drop , but with no response in heart rate. she might have autonomic dysfunciton due to parkinson' s . aso parkinson's meds can cause orthostatic hypotension - cont w/u as out pt with implantable loop recorder 2- HTN: cont her norvasc and enalapril 3- h/o DVT: cont eliquis 4- PArkinson's " Cont [place] -Levo dopa dispo: walked 5 feet with PT. will d/w patient and family rehab placement . otherwise, can go home
--- NOTE | 2018-11-13 17:49 | DS ---
Physical Exam: SUBJECTIVE: Pt reports only bandlike headache like her previous headaches. She reports her headaches are usually resolved with Tylenol and is requesting medication. Otherwise pt reports feeling okay and being back to baseline. OBJECTIVE: Vital Signs Period Temp Pulse Resp BP Sys/Mixon Pulse Ox Last 24 Hr 97.8 F-99.1 F 58-89 18-20 128-187/66-86 96-98 PHYSICAL EXAM GENERAL: The patient is awake, alert, and fully oriented, in no acute distress. HEENT: NC/AT, EOMI, VINH, sclera anicteric, no nystagmus seen, [id number]-dr-azgbu mucosa NECK: No JVD LUNGS: CTA bilaterally, no wheezes, no crackles, no accessory muscle use. On RA HEART: RRR, S1, S2 without murmur ABDOMEN: Soft, NT/ND, normoactive bowel sounds, normoactive bowel sounds, no guarding, no rebound EXTREMITIES: 2+ DP pulses, warm, well-perfused, no edema. No Calf tenderness NEUROLOGICAL: kraft digester operator II through XII grossly intact. Strength 5/5 throughout and symmetrical, sensation to dull and vibratory sense intact, Babinski downgoing b/ l, Biceps and patellar reflex 2/4, resting tremor noted with minimal cog-wheel ROM, normal speech, gait not observed. PSYCH: Normal mood, normal affect. SKIN: Warm, dry, no rashes or lesions noted. LABS Laboratory Results - last 24 hr 11/12/18 11/13/18 11/13/18 23:12 05:42 06:00 WBC 5.3 RBC 4.39 Hgb 11.9 Hct 36.8 MCV 83.8 MCH 27.1 MCHC 32.4 RDW 15.2 Plt Count 183 MPV 9.7 PT with INR INR PTT (Actin FS) Sodium Potassium Chloride Carbon Dioxide Anion Gap BUN Creatinine Creat Clearance w eGFR POC Glucometer 166 104 Random Glucose Hemoglobin A1c % Calcium Phosphorus Magnesium Total Bilirubin AST ALT Alkaline Phosphatase Total Protein Albumin TSH 11/13/18 11/13/18 11/13/18 06:00 06:00 06:00 WBC RBC Hgb Hct MCV MCH MCHC RDW Plt Count MPV PT with INR 14.60 H INR 1.23 H PTT (Actin FS) 35.1 Sodium 143 Potassium 4.1 Chloride 110 H Carbon Dioxide 26 Anion Gap 8 BUN 17 Creatinine 1.0 Creat Clearance w eGFR 53.76 POC Glucometer Random Glucose 91 Hemoglobin A1c % 6.2 Calcium 8.2 L Phosphorus 3.3 Magnesium 2.0 Total Bilirubin 0.4 AST 17 ALT 20 Alkaline Phosphatase 87 Total Protein 6.2 L Albumin 3.1 L TSH 1.60 11/13/18 11:50 WBC RBC Hgb Hct MCV MCH MCHC RDW Plt Count MPV PT with INR INR PTT (Actin FS) Sodium Potassium Chloride Carbon Dioxide Anion Gap BUN Creatinine Creat Clearance w eGFR POC Glucometer 119 Random Glucose Hemoglobin A1c % Calcium Phosphorus Magnesium Total Bilirubin AST ALT Alkaline Phosphatase Total Protein Albumin TSH Head CT 11/12/18 - No intraparenchymal hemorrhage is seen. There is no CT evidence of acute subarachnoid hemorrhage. Correlate clinically. No extra-axial fluid collection is noted. There is no obvious mass lesion on noncontrast imaging. Involutional changes are seen with mild ventricular dilatation. The calvarium appears intact. The partially imaged paranasal sinuses demonstrate no opacification. IMPRESSION: No CT evidence of acute intracranial pathology. A very small amount of fluid is noted within the right mastoid air cells. HOSPITAL COURSE: Date of Admission:11/12/18 Date of Discharge: 11/13/18 Pt admitted with recurrent syncopal episodes with previous [facility] workup about 1.5 weeks prior. Pt was seen by inspector metal fabricating who reviewed [facility] workup which did not show abnormalities. In addition she had previous Holter monitoring workup without abnormalities. In addition Neurology was consulted who had suspicion for autonomic dysfunction due to her pre-existing Parkinson's disease. Pt's orthostatic vitals signs were also initially positive. She received IVF and repeat vital signs were improved with notable no change in HR throughout. Pt's Lasix dose was held during her stay, however she is to continue Lasix 20mg DAILY (changed from BID) and recommended to follow-up with her Director Advertising for discussion. Speech pathology recommended pt should continue with regular diet and thin liquids. Physical therapy evaluated pt for which she only walked 5ft, however daughter and pt report that this is her baseline due to her Parkinson's disease. They did not wish to pursue rehabilitation services and reported they have a VOLCANOLOGIST who continues to see the pt and help with exercise. Pt was advised to use her walker at all times. Pt being discharged to home with continued aide services in stable condition. Encourage PO hydration to help prevent syncopal events. Recommended f/u with neurologist for parkinson's treatment and inspector metal fabricating for possible event monitor. Minutes to complete discharge: 35 Discharge Summary Reason For Visit: SYNCOPE Current Active Problems Syncope (Acute) Condition: Stable - Instructions Diet, Activity, Other Instructions: You were seen here for a fainting spell. You were seen by our inspector metal fabricating and our neurologist. Your blood pressure showed that part of the fainting spell was from not enough hydration. but there might be other causes . We hydrated you and decreased your water pill and your vital signs improves. Your Head CAT scan did not show any acute changes. You were seen by a speech pathologist and she reported you can continue with regular diet and thin liquids. Your physical therapy report showed only 5 feet, however you did not want to pursue a rehab facility. Pleas econtinue to do exercises with your hospice home health aide. Please use a walker at all times. MEDICATIONS: Please take lasix once a day instead of twice daily until you see your inspector metal fabricating . Please continue the rest of your medications as you have been as below: Eliquis 2.5mg TWICE daily Lipitor 10mg NIGHTLY Norvasc 2.5mg DAILY Enalapril 20mg DAILY Carbidopa/Levidopa TWICE DAILY Arimadex 1 tablet DAILY Ropinirole 1 tablet NIGHTLY Metformin 500mg TWICE DAILY lasix 20 mg daily Please keep adequately hydrated as well. FOLLOW-UP: Please follow-up with your Neurologist regarding your Parkinson's and fainting spells. Please follow-up with your primary care physician within 1 week. Referrals for our physicians Dr. Tan (Director Advertising) and Dr. Dey ( Neurologist) have been put into your chart if you cannot get an appointment with your home physicians or if you would want to switch providers. you might need medical terminologist implantable monitor to rule out arrhythmias Blood pressure drops after standing quickly. please sit at the edge of the bed for few minutes before standing. always be careful and has some type of support next to you in case you feel dizzy and need to sit down Referrals: Javier Tan MD [Staff Physician] - Danny Dey MD [Staff Physician] - Disposition: VNS/HOME HEALTH CARE - Home Medications Comprehensive Discharge Medication List: Ambulatory Orders Amlodipine Besylate 2.5 mg PO DAILY 11/12/18 Apixaban [Eliquis] 2.5 mg PO BID 11/12/18 Atorvastatin Ca [Lipitor] 10 mg PO HS 11/12/18 Enalapril Maleate [Vasotec] 20 mg PO DAILY 11/12/18 Anastrozole [Arimidex -] 1 tab PO DAILY 11/13/18 Carbidopa/Levodopa [Carbidopa-Levo ER 50-200 Tab] 1 tab PO BID 11/13/18 Furosemide [Lasix] 20 mg PO DAILY #1 tablet 11/13/18 Metformin HCl [Glucophage] 1 tab PO BID 11/13/18 Omeprazole 1 tab PO DAILY 11/13/18 Ropinirole HCl 1 tab PO HS 11/13/18 This patient is new to me today: Yes Date on this admission: 11/13/18 Emergency Visit: Yes ED Registration Date: 11/12/18 Care time: The patient presented to the Emergency Department on the above date and was hospitalized for further evaluation of their emergent condition. Critical Care patient: No - Discharge Referral Referred to [facility] Med [facility] No
== END 2018-11-13 18:41 | disposition home health service (06) ==
LOC: JER 09:30 → INTOOBSV 14:12 → JERBED 14:12 → UNDOADMOB 14:12 → JERBED 14:38 → J4W 23:18
PROVIDERS: ADMIT Internal Medicine; ATTEND Internal Medicine
PROC: 3E0337Z Introduction of Electrolytic and Water Balance Substance into Peripheral Vein, Percutaneous Approach (ICD-10-PCS; principal; 2018-11-12)
PROC: 3E013VG Introduction of Insulin into Subcutaneous Tissue, Percutaneous Approach (ICD-10-PCS; 2018-11-12)
DX: R55 Syncope and collapse (principal); I10 Essential (primary) hypertension; E11.9 Type 2 diabetes mellitus without complications; G20 Parkinson's disease; Z86.73 Personal history of transient ischemic attack (TIA), and cerebral infarction without residual deficits; Z86.718 Personal history of other venous thrombosis and embolism; Z79.01 Long term (current) use of anticoagulants; Z85.3 Personal history of malignant neoplasm of breast; Z91.041 Radiographic dye allergy status
CPT/HCPCS: 36415; 70450-TC; 71045-TC-FY; 80053; 82550; 82553; 82962; 83036; 83735; 84100; 84443; 84481; 84484; 85025; 85027; 85610; 85730; 87086; 87186; 93005; 93010; 96360; 96372; 97116-GP; 97162-GP; 99282-25; G0378; J7030

== ENCOUNTER 2019-01-06 10:51 | Inpatient (IN) | payer OTHER | END 2019-01-09 18:32 | disposition home or self-care (01) | LOC: JER 10:51 → JERBED 15:45 → J4W 18:01 ==

== ENCOUNTER 2019-03-10 13:13 | Observation (INO) | payer OTHER ==
[2019-03-10 13:29] VITALS: BMI 28.1
--- NOTE | 2019-03-10 14:06 | PDOC ---
History of Present Illness - General Chief Complaint: CVA/TIA Stated Complaint: Blood Pressure Problem Time Seen by Provider: 03/10/19 13:34 - History of Present Illness Initial Comments: 03/10/19 14:06 73 y/o F hx of CVA, T2DM,HTN, parkinsons disease,RLS and multiple syncopal episodes, presents to the ED with 3 hrs of headache. The headache began suddenly and feels like a throbbing sensation radiating across her forehead and down the left side of her face to her neck. The pain is constant 10/10 and was not relieved with 1000mg of Tylenol at home. She had an episode of blurry vision which lasted approx. 1 minute. She has been nauseous for the last 3 hrs and has had nothing to eat.She denies any episodes of vomiting, numbness, tingling, weakness in one side more than the other,photophobia or phonophobia. 03/10/19 14:43 03/10/19 15:03 Past History - Past Medical History Allergies/Adverse Reactions: Allergies Allergy/AdvReac Type Severity Reaction Status Date / Time Iodinated Contrast- Oral and Allergy Verified 03/10/19 13:25 IV Dye Home Medications: Ambulatory Orders Apixaban [Eliquis] 2.5 mg PO BID 11/12/18 Atorvastatin Ca [Lipitor] 10 mg PO HS 11/12/18 Enalapril Maleate [Vasotec] 20 mg PO BID 11/12/18 Anastrozole [Arimidex -] 1 tab PO DAILY 11/13/18 Carbidopa/Levodopa [Carbidopa-Levo ER 50-200 Tab] 1 tab PO BID 11/13/18 Furosemide [Lasix] 20 mg PO DAILY #1 tablet 11/13/18 Metformin HCl [Glucophage] 1 tab PO BID 11/13/18 Omeprazole 20 mg PO DAILY 11/13/18 Midodrine HCl [Proamatine -] 7.5 mg PO DAILY@0700,1200,1700 #90 tablet 03/12/19 Midodrine HCl [Proamatine -] 7.5 mg PO TID #90 tablet 03/13/19 Anemia: No Asthma: No Cancer: Yes ((R)LUMPECTOMY 2014 - RADIATION [place]) Cardiac Disorders: No CVA: Yes (CVA "MINI" 2015) COPD: No CHF: Yes Dementia: Yes ("SUNDOWNS") Diabetes: Yes GI Disorders: No Disorders: No HTN: Yes Hypercholesterolemia: Yes Liver Disease: No Seizures: No Thyroid Disease: No Other medical history: Parkinson's - Surgical History Abdominal Surgery: No Appendectomy: No Cardiac Surgery: No Cholecystectomy: No Lung Surgery: No Neurologic Surgery: No Orthopedic Surgery: Yes ((R)TKR 2009) - Immunization History Immunization Up to Date: Yes - Suicide/Smoking/Psychosocial Hx Smoking History: Unknown if ever smoked Have you smoked in the past 12 months: No Hx Alcohol Use: No Drug/Substance Use Hx: No Substance Use Type: None Review of Systems - Review of Systems All Other Systems: Reviewed and Negative *Physical Exam - Vital Signs Last Vital Signs Temp Pulse Resp BP Pulse Ox 99 F 66 18 150/81 97 03/10/19 13:25 03/10/19 13:25 03/10/19 13:25 03/10/19 13:25 03/10/19 13:25 - Physical Exam General Appearance: Yes: Nourished, Appropriately Dressed, Mild Distress HEENT: positive: EOMI. negative: Pale Conjunctivae, Photophobia, Scleral Icterus (R), Scleral Icterus (L) Neck: positive: Trachea midline, Supple Respiratory/Chest: positive: Lungs Clear, Normal Breath Sounds. negative: Respiratory Distress, Accessory Muscle Use, Labored Respiration, Wheezing Cardiovascular: positive: Regular Rhythm, Regular Rate, S1, S2 Vascular Pulses: Dorsalis-Pedis (R): 2+, Doralis-Pedis (L): 2+ Extremity: positive: Normal Capillary Refill, Normal Inspection, Normal Range of Motion, Other (tremor in left hand and left leg at rest.) Integumentary: positive: Normal Color, Dry, Warm. negative: Cold, Clammy, Diaphoresis Neurologic: positive: bpm solution architect II-XII NML intact, Fully Oriented, Alert, Normal Mood/ Affect, Normal Response, Other (strength 4/5 bilateral lower extremities. strength 5/5 upper extremities. No drift on leg raise or arm raise.) ED Treatment Course - LABORATORY CBC & Chemistry Diagram: 03/11/19 05:10 03/11/19 05:10 Medical Decision Making - Medical Decision Making 03/10/19 15:03 73 y/o F hx of CVA, T2DM,HTN, parkinsons disease, RLS, and multiple syncopal episodes presents to the ED with 3 hrs of headache. Ddx: CVA vs Migraine vs non-specified headache 03/10/19 15:04 cbc, cmp, cardiac profile, ct head w/o contrast, ekg - Pt is trop negative. 03/10/19 15:05 Consult order sent to Dr. Hubbard (neurologist). Pt. seen by ALESSANDRO Elizalde 03/10/19 15:46 Ct Impression: No evidence of acute intracranial pathology. 03/10/19 15:54 MRI of brain suggested by Dr. Hubbard pt. will be admitted to Dr. Richardson's service. 03/10/19 16:[address] Rivera, Pt will be admitted to telemetry *DC/Admit/Observation/Transfer Diagnosis at time of Disposition: Headache Qualifiers: Headache type: unspecified Headache chronicity pattern: unspecified pattern Intractability: not intractable Qualified Code(s): R51 - Headache HTN (hypertension) Qualifiers: Hypertension type: unspecified Qualified Code(s): I10 - Essential (primary) hypertension - Discharge Dispostion Disposition: HOME - Referrals - Patient Instructions - Post Discharge Activity
[2019-03-10] MEDS ORDERED: PROCHLORPERAZINE INJECTION 10 MG/2 ML VIAL IVPB ONE (14:33)
[2019-03-10 14:38] LABS: BASO % 0.9 % (0-2.0); HEMATOCRIT 41.2 % (32.4-45.2); HEMOGLOBIN 13.5 GM/dL (10.7-15.3); LYMPH % 37.3 % (8-40); MCH 28.2 pg (25.7-33.7); MCHC 32.7 g/dl (32.0-36.0); MEAN CELL VOLUME 86.1 fl (80-96); MEAN PLT VOLUME 9.4 fl (7.5-11.1); MONO % 8.9 % (3.8-10.2); NEUT % 50.9 % (42.8-82.8); PLATELET COUNT 212 K/MM3 (134-434); RBC 4.78 M/mm3 (3.60-5.2); RDW 15.8 % (11.6-15.6); WHITE BLOOD COUNT 5.4 K/mm3 (4.0-10.0)
[2019-03-10] MEDS ORDERED: METOCLOPRAMIDE HCL INJECTION 10 MG/2 ML VIAL IVPB ONE (14:40)
[2019-03-10] MEDS ORDERED: SODIUM CHLORIDE 500 ML IV STA (14:41)
[2019-03-10] MEDS ORDERED: SODIUM CHLORIDE 1,000 ML IV SCH (14:45)
[2019-03-10 14:51] LABS: INR 1.23 (0.83-1.09); PROTHROMBIN TIME (PATIENT) 14.5 SEC (9.7-13.0)
[2019-03-10 14:53] LABS: ACTIVATED PTT 36.1 SECONDS (25.2-36.5)
[2019-03-10] MEDS ORDERED: METOCLOPRAMIDE HCL INJECTION 10 MG/2 ML VIAL ONE (14:58)
[2019-03-10 15:12] LABS: ALBUMIN 3.6 g/dl (3.4-5.0); BILIRUBIN,TOTAL 0.6 mg/dL (0.2-1); BLOOD UREA NITROGEN 14.7 mg/dL (7-18); CALCIUM 9.5 mg/dL (8.5-10.1); POTASSIUM 4.4 mmol/L (3.5-5.1); TOT PROT 7.1 g/dl (6.4-8.2)
--- NOTE | 2019-03-10 15:24 | CONSULT ---
Consult - text type - Consultation Consultation Note: NEUROLOGY CONSULT GREATLY APPRECIATED: Events reviewed and discussed with staff. Son, Kathrin and aidcruz at bedside aiding in history and translation. Last seen in office consult 02/18/2019. This 78 yo RH woman with HTN, HLD, DVT, DM, Parkinson's disease and associated dysautonomia, migraine headaches. On: metformin, apixaban, ropinirole 0.5 mg po qhs, furosemide, anastrazole, enalapril, Sinemet CR 50/200 @ 02-21-5, midodrine 10 mg 7-12. Per son, still with multiple syncopal episodes around meal-time, last occurring yesterday during 2 pm meal. He notes that she is unable to eat with her BP < 150s, so will help her move her extremities or hold enalapril to increase BP to 180s prior to meals. Today admitted with "sharp" headache at vertex with associated photophobia, phonophobia, nausea and kinesiophobia. BP taken at home 210/112. Head CT (reviewed): Mod diffuse cerebral atrophy with deep sulcal widening. Chronic ischemic periventricular changes. No acute pathology. WBC=5.4K NIHARIKA: T99. Supine 149/85. Sitting 165/86. Cor reg. No bruit. Neck supple. NEURO: Awake, alert, sl dysarthric and hypophonic. [facility]. March 11, 2019.+ glabella, snout CNII-CNXII: EOM's full without nystagmus. No facial. Reduced rapid tongue. Motor: Bradykinetic. R drift. Decreased LUIS M's B/L. Symmetric grasps. + Rest tremor and cogwheeling both hands. Reflexes normal in arms, reduced at knees, absent AJs. R Babinski. Coordination: Slowed without dystaxia. Sensation: Reduced vibration over feet. Gait: deferred. 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 Suggest: MRI of Brain (C-) Follow orthostatic BP's. Maintain patient OO Bed to chair as much as possible. Small volume frequent meals Continue current BP regimen (above noted BP's on exam are OK for now). D/C Ropinerole. Increase Midodrine to 10 PO TID with L-Dopa R/O occult infection Neuro follow-up as out-patient for Northera Rx. Thank you very much, He Hubbard MD
[2019-03-10] MEDS ORDERED: IBUPROFEN 400 MG TABLET (FP) PO ONE ×2 (16:24→18:38)
--- NOTE | 2019-03-10 16:25 | PDOC ---
Documentation entered by Renee Lopez SCRIBE, acting as scribe for Carter Goyal MD. Carter Goyal MD: This documentation has been prepared by the John aly Brenda, SCRIBE, under my direction and personally reviewed by me in its entirety. I confirm that the documentation accurately reflects all work, treatment, procedures, and medical decision making performed by me. Attending Attestation - Resident Resident Name: DebraSaadjoannaSherlyn - ED Attending Attestation I have performed the following: I have examined & evaluated the patient, The case was reviewed & discussed with the resident, I agree w/resident's findings & plan, Exceptions are as noted - HPI HPI: 03/10/19 15:06 The patient is a 78 year old female, with a significant PMH of Parkinson's Disease, HTN, Hx of DVT (eliquis), hx of multiple syncopal episodes, and HLD, who presents to the emergency department with 3 hours of a headache. Pt had a moderate throbbing headache on her forehead radiating down her left side of her face an dwas 10/10, pt had a transient episode of blurry vision. endorse some nausea without vomiting. The patient also notes being nauseous for the past 3 hours, and has not had an appetite nor ate anything. She reports taking tylenol at home, to no avail. Family noted the pt had an episode of R sided arm weakness and cnofusion ailyn tthey attributed to her having poor sleep. The weakness lasted approx 15 min then resolved. The patient denies any current focal numbness, weakness or tingling. Denies any chest pain, shortness of breath. Denies fever, chills, vomiting, diarrhea and constipation. Denies any urinary symptoms. Allergies: Oral and IV Iodinated contrast dye Past surgical history: LUMPECTOMY 2015 Social history: Unknown if ever smoked. PCP: Elder Wilkerson - Physicial Exam PE: 03/10/19 16:22 GENERAL: The patient is awake, alert, and fully oriented, Nontoxic - in no acute distress. HEAD: Normocephalic, atraumatic. EYES: extraocular movements intact, sclera anicteric, conjunctiva clear. ENT: Normal voice, Moist mucous membranes. NECK: Normal range of motion, supple LUNGS: Breath sounds equal, clear to auscultation bilaterally. No wheezes, no rhonchi, no rales. HEART: Regular rate and rhythm, normal S1 and S2 without murmur, rub or gallop. ABDOMEN: Soft, nontender, No guarding, no rebound. No CVA tenderness EXTREMITIES: Normal range of motion, no edema. NEUROLOGICAL: No facial assymetry, Normal speech, PSYCH: Normal mood, normal affect. SKIN: Warm, Dry, normal turgor, NEURO: Mental status: The patient is oriented x3. Cranial nerves: Cranial nerves II through XII are intact Motor: The upper extremities are 5 over 5 in all muscle groups. The lower extremities are 5 over 5 in all muscle groups. Negative pronator drift Sensation: Sensation is intact to light touch throughout. romberg negative Cerebellar: Bqokja-jeofma-rkxd is normal in both upper extremities. rapid alternating movements are normal. Gait: deferred - Medical Decision Making 03/10/19 14:15 ddx - tnesion headache vs migraine vs cva/tia 03/10/19 16:[address] head negative for acute pathology pt evaluated by neuro requests mri wll admit for further mangaemnt Heart Score/ECG Review - ECG Impressions Comment:: 03/10/19 17:08 Twelve-lead EKG was performed and reviewed by me. There is normal sinus rhythm with a normal rate. rate of 70 Left axis deviation q wave in inferior/lateral leads n osignificant daryl gibbons compared to ekg dated jan 06 2019
--- NOTE | 2019-03-10 19:13 | HP ---
Admitting History and Physical - Primary Care Physician PCP: Evangelina Rivera - Admission History of Present Illness: 78 year old female, with a significant PMH of Parkinson's Disease, HTN, Hx of DVT (eliquis), hx of multiple syncopal episodes, and HLD, who presents to the emergency department with 3 hours of a headache. Pt had a moderate throbbing headache on her forehead radiating down her left side of her face an dwas 10/10 , pt had a transient episode of blurry vision. endorse some nausea without vomiting. The patient also notes being nauseous for the past 3 hours, and has not had an appetite nor ate anything. She reports taking tylenol at home, to no avail. Family noted the pt had an episode of R sided arm weakness and confusion ailyn they attributed to her having poor sleep. The weakness lasted approx 15 min then resolved. - Past Medical History LOT PORTER: Yes: CVA, Parkinson's, Syncope Cardiovascular: Yes: Deep Vein Thrombosis, HTN, Hyperlipdemia Heme/Onc: Yes: Cancer, Other (dvt) Endocrine: Yes: Diabetes Mellitus - Smoking History Smoking history: Unknown if ever smoked Have you smoked in the past 12 months: No - Alcohol/Substance Use Hx Alcohol Use: No - Social History ADL: Support Services History of Recent Travel: No Home Medications - Allergies Allergies/Adverse Reactions: Allergies Allergy/AdvReac Type Severity Reaction Status Date / Time Iodinated Contrast- Oral and Allergy Verified 03/10/19 13:25 IV Dye - Home Medications Home Medications: Ambulatory Orders Apixaban [Eliquis] 2.5 mg PO BID 11/12/18 Atorvastatin Ca [Lipitor] 10 mg PO HS 11/12/18 Enalapril Maleate [Vasotec] 20 mg PO BID 11/12/18 Anastrozole [Arimidex -] 1 tab PO DAILY 11/13/18 Carbidopa/Levodopa [Carbidopa-Levo ER 50-200 Tab] 1 tab PO BID 11/13/18 Furosemide [Lasix] 20 mg PO DAILY #1 tablet 11/13/18 Metformin HCl [Glucophage] 1 tab PO BID 11/13/18 Omeprazole 20 mg PO DAILY 11/13/18 Ropinirole HCl 1 tab PO HS 11/13/18 Midodrine HCl [Proamatine -] 7.5 mg PO DAILY@0700,1200,1700 #30 tablet 03/11/19 Physical Examination Vital Signs: Vital Signs Temperature 99 F 03/10/19 13:25 Pulse Rate 66 03/10/19 13:25 Respiratory Rate 18 03/10/19 13:25 Blood Pressure 150/81 03/10/19 13:25 O2 Sat by Pulse Oximetry (%) 97 03/10/19 13:25 Constitutional: Yes: No Distress HENT: Yes: Atraumatic Neck: Yes: Supple Cardiovascular: Yes: Regular Rate and Rhythm Respiratory: Yes: CTA Bilaterally Gastrointestinal: Yes: Normal Bowel Sounds Extremities: Yes: WNL Edema: No Neurological: Yes: Alert, Oriented Labs: CBC, BMP 03/10/19 14:05 03/10/19 14:05 Problem List - Problems (1) HTN (hypertension) Assessment/Plan: bp better now meds getting adjusted Code(s): I10 - ESSENTIAL (PRIMARY) HYPERTENSION Qualifiers: Hypertension type: unspecified Qualified Code(s): I10 - Essential (primary ) hypertension (2) Headache Assessment/Plan: prn tylenol Code(s): R51 - HEADACHE Qualifiers: Headache type: unspecified Headache chronicity pattern: unspecified pattern Intractability: not intractable Qualified Code(s): R51 - Headache (3) DVT (deep venous thrombosis) Assessment/Plan: on eliquis Code(s): I82.409 - ACUTE EMBOLISM AND THOMBOS UNSP DEEP VN UNSP LOWER EXTREMITY (4) Diabetes Assessment/Plan: on metformin bgms Code(s): E11.9 - TYPE 2 DIABETES MELLITUS WITHOUT COMPLICATIONS (5) HLD (hyperlipidemia) Code(s): E78.5 - HYPERLIPIDEMIA, UNSPECIFIED Assessment/Plan Laboratory Tests 03/10/19 03/10/19 03/10/19 14:05 14:05 14:05 WBC 5.4 RBC 4.78 Hgb 13.5 Hct 41.2 MCV 86.1 MCH 28.2 MCHC 32.7 RDW 15.8 H Plt Count 212 D MPV 9.4 Absolute Neuts (auto) 2.8 Neutrophils % 50.9 Lymphocytes % 37.3 D Monocytes % 8.9 Eosinophils % 2.0 Basophils % 0.9 Nucleated RBC % 0 PT with INR 14.50 H INR 1.23 H PTT (Actin FS) 36.1 Sodium Potassium Chloride Carbon Dioxide Anion Gap BUN Creatinine Est GFR (CKD-EPI)AfAm Est GFR (CKD-EPI)NonAf Random Glucose Calcium Total Bilirubin AST ALT Alkaline Phosphatase Creatine Kinase 42 Troponin I < 0.02 Total Protein Albumin 03/10/19 14:05 WBC RBC Hgb Hct MCV MCH MCHC RDW Plt Count MPV Absolute Neuts (auto) Neutrophils % Lymphocytes % Monocytes % Eosinophils % Basophils % Nucleated RBC % PT with INR INR PTT (Actin FS) Sodium 141 Potassium 4.4 Chloride 106 Carbon Dioxide 29 Anion Gap 6 L BUN 14.7 Creatinine 1.0 Est GFR (CKD-EPI)AfAm 62.93 Est GFR (CKD-EPI)NonAf 54.30 Random Glucose 129 H Calcium 9.5 Total Bilirubin 0.6 AST 33 ALT 8 L Alkaline Phosphatase 90 Creatine Kinase Troponin I Total Protein 7.1 Albumin 3.6 Active Medications Generic Name Dose Route Start Last Admin Trade Name Freq PRN Reason Stop Dose Admin Acetaminophen 500 mg 03/10/19 21:52 Tylenol - PO Q4H PRN HEADACHE Amlodipine Besylate 5 mg 03/11/19 10:00 Norvasc - PO DAILY [facility] Amlodipine Besylate 5 mg 03/10/19 21:59 Norvasc - PO 03/10/19 22:00 ONCE ONE Anastrozole 1 mg 03/11/19 10:00 Arimidex - PO DAILY [facility] Apixaban 2.5 mg 03/10/19 22:00 Eliquis - PO BID [facility] Atorvastatin Calcium 10 mg 03/10/19 22:00 Lipitor - PO HS [facility] Carbidopa/Levodopa 1 combo 03/11/19 07:00 Sinemet *Cr* 50/200 - PO TID [facility] Enalapril Maleate 20 mg 03/10/19 22:00 Vasotec - PO BID [facility] Furosemide 20 mg 03/11/19 10:00 Lasix - PO DAILY [facility] Metformin HCl 500 mg 03/10/19 22:00 Glucophage - PO BIDAC [facility] Midodrine 5 mg 03/11/19 10:00 Proamatine - PO TID-MID [facility] Pantoprazole Sodium 20 mg 03/11/19 10:00 Protonix - PO DAILY [facility]
[2019-03-10] MEDS: ACETAMINOPHEN 500 MG TABLET (FP) PO PRN (20:20)
[2019-03-10] MEDS ORDERED: ACETAMINOPHEN 325 MG TABLET (FP) PO PRN (21:26)
[2019-03-10] MEDS ORDERED: amLODIPine BESYLATE 10 MG TABLET (FP) PO SCH (21:30)
[2019-03-10] MEDS ORDERED: amLODIPine BESYLATE 5 MG TABLET (FP) PO ONE (21:59)
[2019-03-10] MEDS ORDERED: rOPINIRole HCL 0.5 MG TABLET PO SCH (22:00)
[2019-03-10] MEDS: APIXABAN 2.5 MG TABLET PO SCH (22:16)
[2019-03-10] MEDS: ATORVASTATIN CA 10 MG TABLET (FP) PO SCH (22:16)
[2019-03-10] MEDS: ENALAPRIL MALEATE 10 MG TABLET (FP) PO SCH (22:16)
[2019-03-10] MEDS: metFORMIN HCL 500 MG TABLET (FP) PO SCH (22:17)
[2019-03-10] MEDS ORDERED: PT OWN MED DRAWER 7, Y5N ONE (22:51)
[2019-03-11 06:02] LABS: EOS % 2.1 % (0-4.5); HEMATOCRIT 35.8 % (32.4-45.2); HEMOGLOBIN 11.9 GM/dL (10.7-15.3); LYMPH % 41.6 % (8-40); MCH 28.1 pg (25.7-33.7); MCHC 33.2 g/dl (32.0-36.0); MEAN CELL VOLUME 84.9 fl (80-96); MEAN PLT VOLUME 9.4 fl (7.5-11.1); NEUT % 48.3 % (42.8-82.8); PLATELET COUNT 195 K/MM3 (134-434); RBC 4.22 M/mm3 (3.60-5.2); RDW 15.2 % (11.6-15.6); WHITE BLOOD COUNT 5.9 K/mm3 (4.0-10.0)
[2019-03-11 06:15] LABS: ALBUMIN 3.2 g/dl (3.4-5.0); BILIRUBIN,TOTAL 0.5 mg/dL (0.2-1); BLOOD UREA NITROGEN 13.7 mg/dL (7-18); CREATININE 0.9 mg/dL (0.55-1.3); POTASSIUM 3.9 mmol/L (3.5-5.1); TOT PROT 6.2 g/dl (6.4-8.2)
[2019-03-11] MEDS ORDERED: PT OWN MED DRAWER 7, Y5N ONE ×4 (06:19→14:01)
[2019-03-11] MEDS: ACETAMINOPHEN 500 MG TABLET (FP) PO PRN (06:35)
[2019-03-11] MEDS: metFORMIN HCL 500 MG TABLET (FP) PO SCH ×2 (06:35→17:05)
[2019-03-11] MEDS ORDERED: MIDODRINE HCL 5 MG TABLET PO SCH (07:00)
--- NOTE | 2019-03-11 08:32 | CON.CARD ---
Consult Consult Specialty:: Cardiology Referred by:: Nicole Reason for Consultation:: orthostasis - History of Present Illness Chief Complaint: headache History of Present Illness: She is a 78 year old woman with a history of HTN, DVT on eliquis, NIDDM, chol , rt breast cancer, Parkinson's disease, CVA, recurrent syncope episodes with multiple recent admissions to [facility] and [facility] with syncope that occurred while sitting down eating with preceding dizziness, sob, diaphoresis and LOC for 5 minutes.She had no events on telemetry during the admissions. She had a snf event monitor on discharge and she has had multiple recurrences of her syncopal episodes which last up to 20 minutes of unresponsiveness at a time with her family present. Her event monitor strips during those episodes was reviewed and there has been no arrhythmias that would account for the episodes. Echo during recent admission was wnl as below. Nuclear stress test 12/2016 wnl and V/Q scan 11/04/18 showed no evidence of pulmonary embolism. 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 She has been on Florinef, midodrine. She was admitted with hypertension and headache. Awaiting MRI. She had postprandial hypotension this morning with near syncope. Prior Cardiac work up: EVENT Monitor 11/14/18 The patient was monitored for 719:31 hours, of which 624:35 hours were usable. Average heart rate for the monitored period was 62 BPM. Tachycardia was present for <1% of the readable data; Bradycardia was present for 47% of the readable data. No Pause(s) noted of 3 seconds or longer. 23 manually-triggered recording(s) posted with symptoms including Rapid HR/Palp/ Flutter, Dizziness/Lightheaded, Passed out. These corresponded to isolated VPCs without prolonged pauses or NSR Holter 11/14/2018 (47:54 hours recorded, 35:52 hours analyzed): The rhythm throughout the monitoring period was sinus rhythm with an average heart rate of 61 BPM (41-102 BPM). There were frequent APCs and VPCs. There were 10 runs of PSVT the longest of which was 13 beats at a highest heart rate of 161 BPM. There were no significant pauses recorded. There were 2 manual transmissions made with no symptoms reported that corresponded with sinus rhythm with an isolated APC and an isolated PVC respectively. TTE 11/05/18 Normal left ventricular size. Normal left ventricular wall motion and ejection fraction. Normal right ventricular size. Normal right ventricular function. Technically difficult study. Intravenous echo contrast Definity was administered to improve visualization of wall motion. V/Q 11/04: negative for PE NM MPI 01/10/17 No evidence of abnormal myocardial perfusion both on stress and rest images. 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: CVA, Parkinson's, Syncope Cardio/Vascular: Yes: Deep Vein Thrombosis, HTN, Hyperlipdemia Endocrine: Yes: Diabetes Mellitus - Alcohol/Substance Use Hx Alcohol Use: No - Smoking History Smoking history: Former smoker Have you smoked in the past 12 months: No If you are a former smoker, when did you quit?: 40 years ago - Social History Usual Living Arrangement: Other ([facility]) ADL: Support Services History of Recent Travel: No Home Medications - Allergies Allergies/Adverse Reactions: Allergies Allergy/AdvReac Type Severity Reaction Status Date / Time Iodinated Contrast- Oral and Allergy Verified 03/10/19 13:25 IV Dye - Home Medications Home Medications: Ambulatory Orders Apixaban [Eliquis] 2.5 mg PO BID 11/12/18 Atorvastatin Ca [Lipitor] 10 mg PO HS 11/12/18 Enalapril Maleate [Vasotec] 20 mg PO BID 11/12/18 Anastrozole [Arimidex -] 1 tab PO DAILY 11/13/18 Carbidopa/Levodopa [Carbidopa-Levo ER 50-200 Tab] 1 tab PO BID 11/13/18 Furosemide [Lasix] 20 mg PO DAILY #1 tablet 11/13/18 Metformin HCl [Glucophage] 1 tab PO BID 11/13/18 Omeprazole 20 mg PO DAILY 11/13/18 Ropinirole HCl 1 tab PO HS 11/13/18 Midodrine HCl [Proamatine -] 5 mg PO BID@0700,1200 #60 tablet 01/09/19 Vital Signs: Vital Signs Temperature 98.4 F 03/11/19 06:00 Pulse Rate 70 03/11/19 06:00 Respiratory Rate 18 03/11/19 06:00 Blood Pressure 155/72 03/11/19 06:00 O2 Sat by Pulse Oximetry (%) 97 03/11/19 03:14 Constitutional: Yes: No Distress, Calm Eyes: Yes: Conjunctiva Clear, EOM Intact HENT: Yes: Atraumatic, Normocephalic Neck: Yes: Supple, Trachea Midline Respiratory: Yes: CTA Bilaterally Gastrointestinal: Yes: Normal Bowel Sounds, Soft Cardiovascular: Yes: Regular Rate and Rhythm JVD: No Carotid Bruit: No PMI: Non-Displaced Heart Sounds: Yes: S1, S2 Edema: No Peripheral Pulses WNL: Yes - Other Data Labs, Other Data: CBC, BMP 03/11/19 05:10 03/11/19 05:10 INR, PTT INR 1.23 (0.83-1.09) H 03/10/19 14:05 Troponin, BNP 03/10/19 03/10/19 14:05 21:05 Troponin I < 0.02 < 0.02 Troponin, BNP 03/10/19 03/10/19 14:05 21:05 Troponin I < 0.02 < 0.02 Imaging - Results Chest X-ray: Report Reviewed EKG: Report Reviewed (nsr) Assessment/Plan She is a 78 year old woman with a history of HTN, DVT on eliquis, NIDDM, chol , rt breast cancer, Parkinson's disease, CVA, recurrent syncope episodes with multiple recent admissions to [facility] and [facility] with syncope that occurred while sitting down eating with preceding dizziness, sob, diaphoresis and LOC for 5 minutes.She had no events on telemetry during the admissions. She had a snf event monitor on discharge and she has had multiple recurrences of her syncopal episodes which last up to 20 minutes of unresponsiveness at a time with her family present. Her event monitor strips during those episodes was reviewed and there has been no arrhythmias that would account for the episodes. Echo during recent admission was wnl as below. Nuclear stress test 12/2016 wnl and V/Q scan 11/04/18 showed no evidence of pulmonary embolism. 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 She has been on Florinef, midodrine. She was admitted with hypertension and headache. Awaiting MRI. She had postprandial hypotension this morning with near syncope. 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 -increase midodrine to 7.5 mg tidac. -continue current florinef -DC telemetry.
--- NOTE | 2019-03-11 09:29 | EKG ---
Test Reason : Blood Pressure : / mmHG Vent. Rate : 070 BPM Atrial Rate : 070 BPM P-R Int : 164 ms QRS Dur : 088 ms QT Int : 476 ms P-R-T Axes : 040 -68 -31 degrees QTc Int : 514 ms POOR DATA QUALITY, INTERPRETATION MAY BE ADVERSELY AFFECTED SINUS RHYTHM WITH SINUS ARRHYTHMIA WITH OCCASIONAL PREMATURE VENTRICULAR COMPLEXES LEFT AXIS DEVIATION LATERAL INFARCT (CITED ON OR BEFORE 12-NOV-2018) INFERIOR-POSTERIOR INFARCT (CITED ON OR BEFORE 12-NOV-2018) ABNORMAL ECG Confirmed by Ino Zhou MD ([id number]) on 03/11/2019 9:29:25 AM Referred By: Confirmed By:Ino Zhou MD
[2019-03-11] MEDS ORDERED: amLODIPine BESYLATE 5 MG TABLET (FP) PO SCH (10:00)
[2019-03-11] MEDS ORDERED: amLODIPine BESYLATE 2.5 MG TABLET (FP) PO SCH (10:00)
[2019-03-11] MEDS ORDERED: ENALAPRIL MALEATE 10 MG TABLET (FP) PO SCH (10:00)
[2019-03-11] MEDS: APIXABAN 2.5 MG TABLET PO SCH ×2 (10:09→21:39)
[2019-03-11] MEDS: FUROSEMIDE 20 MG TABLET (FP) PO SCH (10:09)
[2019-03-11] MEDS: PANTOPRAZOLE 20 MG TABLET (FP) PO SCH (10:09)
[2019-03-11] MEDS: ENALAPRIL MALEATE 10 MG TABLET (FP) PO SCH ×2 (10:30→21:39)
--- NOTE | 2019-03-11 10:39 | PN ---
Progress Note (short form) - Note Progress Note: NEUROLOGY PROGRESS: Events reviewed with nursing staff and son Kathrin. Cardiology consult read and appreciated. Given amlodipine last night due to persistent HTN. Meds reconciled with son to correspond to home BP meds. Today, feels better without headache. This morning, pt experienced post prandial syncopal episode with BP 155/72 @ 6am , and by 9 AM 73/45 supine. MRI of Brain (reviewed): Essentially normal. Scattered subcortical microvascular changes NEURO: Awake, alert, Ox x 3. EOM's full with full huntley. Tongue mvm'ts improved. Gag ok. Motor: Symmetric grasps. + intermittent rest tremor in hands and L foot. Min cogwheeling. Reflexes present in arms, reduced KJ's and absent AJ's. 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 Maintain Pt on home BP meds: furosemide 20 mg daily, enalapril 20 mg BID (hold if systolic BP < 150) Continue Sinemet 50/200 @ . Agree with cardiology to increase midodrine to 7.5 mg . Meals @ . Neuro f/u as outpatient for Northera Rx. Thank you very much, He Hubbard MD
[2019-03-11] MEDS: ANASTROZOLE 1 MG TABLET PO SCH (10:51)
[2019-03-11] MEDS: MIDODRINE HCL 5 MG TABLET PO SCH ×2 (11:30→17:58)
--- NOTE | 2019-03-11 16:41 | DS ---
Physical Examination Vital Signs: Vital Signs Temperature 99.3 F 03/11/19 14:00 Pulse Rate 69 03/11/19 14:00 Respiratory Rate 16 03/11/19 14:00 Blood Pressure 154/78 03/11/19 14:00 O2 Sat by Pulse Oximetry (%) 97 03/11/19 11:00 Labs: CBC, BMP 03/11/19 05:10 03/11/19 05:10 Discharge Summary Reason For Visit: HEADACHE SYNCOPE Current Active Problems HTN (hypertension) (Acute) Headache (Acute) - Instructions - Home Medications Comprehensive Discharge Medication List: Ambulatory Orders Apixaban [Eliquis] 2.5 mg PO BID 11/12/18 Atorvastatin Ca [Lipitor] 10 mg PO HS 11/12/18 Enalapril Maleate [Vasotec] 20 mg PO BID 11/12/18 Anastrozole [Arimidex -] 1 tab PO DAILY 11/13/18 Carbidopa/Levodopa [Carbidopa-Levo ER 50-200 Tab] 1 tab PO BID 11/13/18 Furosemide [Lasix] 20 mg PO DAILY #1 tablet 11/13/18 Metformin HCl [Glucophage] 1 tab PO BID 11/13/18 Omeprazole 20 mg PO DAILY 11/13/18 Ropinirole HCl 1 tab PO HS 11/13/18 Midodrine HCl [Proamatine -] 7.5 mg PO DAILY@0700,1200,1700 #30 tablet 03/11/19
--- NOTE | 2019-03-11 20:24 | PN ---
Progress Note, Physician History of Present Illness: FEELING BETTER - Current Medication List Current Medications: Active Medications Acetaminophen (Tylenol -) 500 mg PO Q4H PRN PRN Reason: HEADACHE Last Admin: 03/11/19 06:35 Dose: 500 mg Anastrozole (Arimidex -) 1 mg PO DAILY [facility] Last Admin: 03/11/19 10:51 Dose: 1 mg Apixaban (Eliquis -) 2.5 mg PO BID [facility] Last Admin: 03/11/19 10:09 Dose: 2.5 mg Atorvastatin Calcium (Lipitor -) 10 mg PO HS [facility] Last Admin: 03/10/19 22:16 Dose: 10 mg Carbidopa/Levodopa (Sinemet *Cr* 50/200 -) 1 combo PO DAILY@0700,1200,1700 [facility] Last Admin: 03/11/19 17:58 Dose: 1 combo Enalapril Maleate (Vasotec -) 20 mg PO BID [place] Furosemide (Lasix -) 20 mg PO DAILY [facility] Last Admin: 03/11/19 10:09 Dose: 20 mg Metformin HCl (Glucophage -) 500 mg PO BIDAC [facility] Last Admin: 03/11/19 17:05 Dose: 500 mg Midodrine (Proamatine -) 7.5 mg PO DAILY@0700,1200,1700 [facility] Last Admin: 03/11/19 17:58 Dose: 7.5 mg Pantoprazole Sodium (Protonix -) 20 mg PO DAILY [facility] Last Admin: 03/11/19 10:09 Dose: 20 mg - Objective Vital Signs: Vital Signs Temperature 98.8 F 03/11/19 18:00 Pulse Rate 64 03/11/19 18:00 Respiratory Rate 18 03/11/19 18:00 Blood Pressure 183/79 H 03/11/19 18:00 O2 Sat by Pulse Oximetry (%) 97 03/11/19 11:00 Constitutional: Yes: No Distress HENT: Yes: Atraumatic Neck: Yes: Supple Cardiovascular: Yes: Regular Rate and Rhythm Respiratory: Yes: CTA Bilaterally Gastrointestinal: Yes: Normal Bowel Sounds Extremities: Yes: WNL Edema: No Peripheral Pulses WNL: Yes Neurological: Yes: Alert, Oriented Labs: CBC, BMP 03/11/19 05:10 03/11/19 05:10 INR, PTT INR 1.23 (0.83-1.09) H 03/10/19 14:05 Problem List - Problems (1) HTN (hypertension) Assessment/Plan: bp better now meds getting adjusted Code(s): I10 - ESSENTIAL (PRIMARY) HYPERTENSION Qualifiers: Hypertension type: unspecified Qualified Code(s): I10 - Essential (primary ) hypertension (2) Headache Assessment/Plan: prn tylenol Code(s): R51 - HEADACHE Qualifiers: Headache type: unspecified Headache chronicity pattern: unspecified pattern Intractability: not intractable Qualified Code(s): R51 - Headache (3) DVT (deep venous thrombosis) Assessment/Plan: on eliquis Code(s): I82.409 - ACUTE EMBOLISM AND THOMBOS UNSP DEEP VN UNSP LOWER EXTREMITY (4) Diabetes Assessment/Plan: on metformin bgms Code(s): E11.9 - TYPE 2 DIABETES MELLITUS WITHOUT COMPLICATIONS (5) HLD (hyperlipidemia) Code(s): E78.5 - HYPERLIPIDEMIA, UNSPECIFIED (6) Parkinson disease Assessment/Plan: on meds Code(s): G20 - PARKINSON'S DISEASE
[2019-03-11] MEDS: ATORVASTATIN CA 10 MG TABLET (FP) PO SCH (21:39)
[2019-03-12] MEDS: ACETAMINOPHEN 500 MG TABLET (FP) PO PRN ×2 (04:46→15:51)
[2019-03-12] MEDS ORDERED: PT OWN MED DRAWER 7, Y5N ONE (05:16)
[2019-03-12] MEDS: metFORMIN HCL 500 MG TABLET (FP) PO SCH ×2 (06:40→17:11)
[2019-03-12] MEDS: MIDODRINE HCL 5 MG TABLET PO SCH ×3 (06:40→17:10)
[2019-03-12] MEDS ORDERED: ENALAPRIL MALEATE 10 MG TABLET (FP) PO SCH ×2 (10:00→10:15)
[2019-03-12] MEDS: PANTOPRAZOLE 20 MG TABLET (FP) PO SCH (11:23)
[2019-03-12] MEDS: APIXABAN 2.5 MG TABLET PO SCH ×2 (11:24→21:45)
[2019-03-12] MEDS: FUROSEMIDE 20 MG TABLET (FP) PO SCH (11:24)
[2019-03-12] MEDS: ENALAPRIL MALEATE 10 MG TABLET (FP) PO SCH ×2 (11:24→21:45)
--- NOTE | 2019-03-12 11:24 | PN ---
Progress Note (short form) - Note Progress Note: NEUROLOGY PROGRESS: Events reviewed with nursing staff and son Kathrin. Son reports no further syncopal episodes after meals on increased Midodrine ( 7.5 mg TID). However, in middle of a meal she "spaced out" and forgot where her spoon was. Her Systolic BP was 190 at the time, and then went down to 140s. Son notes usually after her syncopal events, she soils herself while in diaper. Son notes mom intermittently sees a "young girl" in the evening hours and still with difficulty staying asleep. NEURO: Systolic BP's 160-180s. Awake, alert, Ox x 3. EOM's full with full huntley. Tongue mvm'ts improved. Gag ok. + glabella , snout Motor: Symmetric grasps. No rest tremor. Min cogwheeling. Reflexes present in arms, reduced KJ's and absent AJ's. Sensation: Mislocalizes pinch in legs. Impression: Parkinson's Disease with Dysautonomia Diabetic Peripheral neuropathy may be contributing. Early Manifestations of Parkinson's Disease Psychosis Suggest: Follow orthostatic BP's. EEG monitoring (can be done on inpatient or outpatient basis) Maintain Pt on home BP meds: furosemide 20 mg daily, enalapril 20 mg BID (hold if systolic BP < 150) Continue Sinemet 50/200 @ . Continue midodrine 7.5 mg . Meals @ 8--6. Neuro f/u as outpatient for Northera Rx and possible addition of quietiapine or Nuplazid. Thank you very much, He Hubbard MD
[2019-03-12] MEDS: ANASTROZOLE 1 MG TABLET PO SCH (11:25)
--- NOTE | 2019-03-12 16:20 | PN ---
Progress Note, Physician Chief Complaint: Labile BP's Syncope History of Present Illness: This is a 78 year old woman with a history of HTN, DVT on eliquis, NIDDM, chol , rt breast cancer, Parkinson's disease, CVA, recurrent syncope episodes with multiple recent admissions to [facility] and [facility] with syncope that occurred while sitting down eating with preceding dizziness, sob, diaphoresis and LOC for 5 minutes.She had no events on telemetry during the admissions. 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 Her event monitor strips during those episodes was reviewed and there has been no arrhythmias that would account for the episodes. Echo during recent admission was wnl as below. Nuclear stress test 12/2016 wnl and V/Q scan 11/04/18 showed no evidence of pulmonary embolism. She was seen by neurology as outpatient and felt that Shy-Ocean Export Agent disease with orthostatic hypotension was the likely source of her episodes. She has been on Florinef, midodrine. She was admitted with hypertension and headache. She had postprandial hypotension this morning with near syncope. Prior Cardiac work up: EVENT Monitor 11/14/18 The patient was monitored for 719:31 hours, of which 624:35 hours were usable. Average heart rate for the monitored period was 62 BPM. Tachycardia was present for <1% of the readable data; Bradycardia was present for 47% of the readable data. No Pause(s) noted of 3 seconds or longer. 23 manually-triggered recording(s) posted with symptoms including Rapid HR/Palp/ Flutter, Dizziness/Lightheaded, Passed out. These corresponded to isolated VPCs without prolonged pauses or NSR Holter 11/14/2018 (47:54 hours recorded, 35:52 hours analyzed): The rhythm throughout the monitoring period was sinus rhythm with an average heart rate of 61 BPM (41-102 BPM). There were frequent APCs and VPCs. There were 10 runs of PSVT the longest of which was 13 beats at a highest heart rate of 161 BPM. There were no significant pauses recorded. There were 2 manual transmissions made with no symptoms reported that corresponded with sinus rhythm with an isolated APC and an isolated PVC respectively. TTE 11/05/18 Normal left ventricular size. Normal left ventricular wall motion and ejection fraction. Normal right ventricular size. Normal right ventricular function. Technically difficult study. Intravenous echo contrast Definity was administered to improve visualization of wall motion. V/Q 11/04: negative for PE NM MPI 01/10/17 No evidence of abnormal myocardial perfusion both on stress and rest images. Preserved LV systolic function - Current Medication List Current Medications: Active Medications Acetaminophen (Tylenol -) 500 mg PO Q4H PRN PRN Reason: HEADACHE Last Admin: 03/12/19 15:51 Dose: 500 mg Anastrozole (Arimidex -) 1 mg PO DAILY [facility] Last Admin: 03/12/19 11:25 Dose: 1 mg Apixaban (Eliquis -) 2.5 mg PO BID [facility] Last Admin: 03/12/19 11:24 Dose: 2.5 mg Atorvastatin Calcium (Lipitor -) 10 mg PO HS [facility] Last Admin: 03/11/19 21:39 Dose: 10 mg Carbidopa/Levodopa (Sinemet *Cr* 50/200 -) 1 combo PO DAILY@0700,1200,1700 [facility] Last Admin: 03/12/19 11:26 Dose: 1 combo Enalapril Maleate (Vasotec -) 20 mg PO BID [facility] Last Admin: 03/12/19 11:24 Dose: 20 mg Furosemide (Lasix -) 20 mg PO DAILY [facility] Last Admin: 03/12/19 11:24 Dose: 20 mg Metformin HCl (Glucophage -) 500 mg PO BIDAC [facility] Last Admin: 03/12/19 06:40 Dose: 500 mg Midodrine (Proamatine -) 7.5 mg PO DAILY@0700,1200,1700 [facility] Last Admin: 03/12/19 11:25 Dose: 7.5 mg Pantoprazole Sodium (Protonix -) 20 mg PO DAILY [facility] Last Admin: 03/12/19 11:23 Dose: 20 mg - Objective Vital Signs: Vital Signs Temperature 98.6 F 03/12/19 14:00 Pulse Rate 64 03/12/19 14:00 Respiratory Rate 18 03/12/19 14:00 Blood Pressure 169/79 03/12/19 14:00 O2 Sat by Pulse Oximetry (%) 96 03/11/19 19:00 Constitutional: Yes: No Distress Eyes: Yes: WNL HENT: Yes: WNL Neck: Yes: WNL Cardiovascular: Yes: Regular Rate and Rhythm, S1, S2 Respiratory: Yes: CTA Bilaterally Gastrointestinal: Yes: Soft Edema: LLE: Trace, RLE: Trace Neurological: Yes: Lethargy, Weakness Labs: CBC, BMP 03/11/19 05:10 03/11/19 05:10 INR, PTT INR 1.23 (0.83-1.09) H 03/10/19 14:05 Assessment/Plan 78 year old woman with a history of HTN, DVT on eliquis, NIDDM, chol, rt breast cancer, Parkinson's disease, CVA, recurrent syncope episodes with multiple recent admissions to [facility] and [facility] with syncope that occurred while sitting down eating with preceding dizziness, sob, diaphoresis and LOC for 5 minutes.She had no events on telemetry during the admissions. She had a shelter event monitor on discharge and she has had multiple recurrences of her syncopal episodes which last up to 20 minutes of unresponsiveness at a time with her family present. Her event monitor strips during those episodes was reviewed and there has been no arrhythmias that would account for the episodes. Echo during recent admission was wnl as below. Nuclear stress test 12/2016 wnl and V/Q scan 11/04/18 showed no evidence of pulmonary embolism. She was seen by neurology as outpatient and felt that Shy-Ocean Export Agent disease with orthostatic hypotension was the likely source of her episodes. She has been on Florinef, midodrine. She was admitted with hypertension and headache. She had postprandial hypotension this morning with near syncope. 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 -Continue midodrine to 7.5 mg three times daily. Consider decreasing Enalapril to 20 mg once per day. Continue Lasix 20 mg PO daily
--- NOTE | 2019-03-12 18:05 | PN ---
Progress Note, Physician - Current Medication List Current Medications: Active Medications Acetaminophen (Tylenol -) 500 mg PO Q4H PRN PRN Reason: HEADACHE Last Admin: 03/12/19 15:51 Dose: 500 mg Anastrozole (Arimidex -) 1 mg PO DAILY [facility] Last Admin: 03/12/19 11:25 Dose: 1 mg Apixaban (Eliquis -) 2.5 mg PO BID [facility] Last Admin: 03/12/19 11:24 Dose: 2.5 mg Atorvastatin Calcium (Lipitor -) 10 mg PO HS [facility] Last Admin: 03/11/19 21:39 Dose: 10 mg Carbidopa/Levodopa (Sinemet *Cr* 50/200 -) 1 combo PO DAILY@0700,1200,1700 [facility] Last Admin: 03/12/19 17:10 Dose: 1 combo Enalapril Maleate (Vasotec -) 20 mg PO BID [facility] Last Admin: 03/12/19 11:24 Dose: 20 mg Furosemide (Lasix -) 20 mg PO DAILY [facility] Last Admin: 03/12/19 11:24 Dose: 20 mg Metformin HCl (Glucophage -) 500 mg PO BIDAC [facility] Last Admin: 03/12/19 17:11 Dose: 500 mg Midodrine (Proamatine -) 7.5 mg PO DAILY@0700,1200,1700 [facility] Last Admin: 03/12/19 17:10 Dose: 7.5 mg Pantoprazole Sodium (Protonix -) 20 mg PO DAILY [facility] Last Admin: 03/12/19 11:23 Dose: 20 mg - Objective Vital Signs: Vital Signs Temperature 98.6 F 03/12/19 14:00 Pulse Rate 64 03/12/19 14:00 Respiratory Rate 18 03/12/19 14:00 Blood Pressure 169/79 03/12/19 14:00 O2 Sat by Pulse Oximetry (%) 96 03/11/19 19:00 Constitutional: Yes: No Distress HENT: Yes: Atraumatic Cardiovascular: Yes: Regular Rate and Rhythm Respiratory: Yes: CTA Bilaterally Gastrointestinal: Yes: Normal Bowel Sounds Extremities: Yes: WNL Edema: No Neurological: Yes: Alert, Oriented Labs: CBC, BMP 03/11/19 05:10 03/11/19 05:10 INR, PTT INR 1.23 (0.83-1.09) H 03/10/19 14:05 Problem List - Problems (1) HTN (hypertension) Assessment/Plan: bp better now meds getting adjusted Code(s): I10 - ESSENTIAL (PRIMARY) HYPERTENSION Qualifiers: Hypertension type: unspecified Qualified Code(s): I10 - Essential (primary ) hypertension (2) Headache Assessment/Plan: prn tylenol Code(s): R51 - HEADACHE Qualifiers: Headache type: unspecified Headache chronicity pattern: unspecified pattern Intractability: not intractable Qualified Code(s): R51 - Headache (3) DVT (deep venous thrombosis) Assessment/Plan: on eliquis Code(s): I82.409 - ACUTE EMBOLISM AND THOMBOS UNSP DEEP VN UNSP LOWER EXTREMITY (4) Diabetes Code(s): E11.9 - TYPE 2 DIABETES MELLITUS WITHOUT COMPLICATIONS (5) HLD (hyperlipidemia) Code(s): E78.5 - HYPERLIPIDEMIA, UNSPECIFIED (6) Parkinson disease Code(s): G20 - PARKINSON'S DISEASE
[2019-03-12] MEDS: ATORVASTATIN CA 10 MG TABLET (FP) PO SCH (21:45)
[2019-03-13] MEDS ORDERED: PT OWN MED DRAWER 7, Y5N ONE ×2 (05:55→09:36)
[2019-03-13] MEDS: metFORMIN HCL 500 MG TABLET (FP) PO SCH (06:51)
[2019-03-13] MEDS: ACETAMINOPHEN 500 MG TABLET (FP) PO PRN (06:52)
[2019-03-13] MEDS: FUROSEMIDE 20 MG TABLET (FP) PO SCH (09:41)
[2019-03-13] MEDS: ENALAPRIL MALEATE 10 MG TABLET (FP) PO SCH (09:41)
[2019-03-13] MEDS: APIXABAN 2.5 MG TABLET PO SCH (09:42)
[2019-03-13] MEDS: PANTOPRAZOLE 20 MG TABLET (FP) PO SCH (09:42)
[2019-03-13] MEDS: ANASTROZOLE 1 MG TABLET PO SCH (09:43)
--- NOTE | 2019-03-13 11:15 | DS ---
Physical Examination Vital Signs: Vital Signs Temperature 98.2 F 03/13/19 06:00 Pulse Rate 62 03/13/19 06:00 Respiratory Rate 18 03/13/19 09:07 Blood Pressure 193/96 H 03/13/19 06:00 O2 Sat by Pulse Oximetry (%) 96 03/13/19 09:07 Labs: CBC, BMP 03/11/19 05:10 03/11/19 05:10 Discharge Summary Reason For Visit: HEADACHE SYNCOPE Current Active Problems HTN (hypertension) (Acute) Headache (Acute) Parkinson disease (Acute) - Instructions - Home Medications Comprehensive Discharge Medication List: Ambulatory Orders Apixaban [Eliquis] 2.5 mg PO BID 11/12/18 Atorvastatin Ca [Lipitor] 10 mg PO HS 11/12/18 Enalapril Maleate [Vasotec] 20 mg PO BID 11/12/18 Anastrozole [Arimidex -] 1 tab PO DAILY 11/13/18 Carbidopa/Levodopa [Carbidopa-Levo ER 50-200 Tab] 1 tab PO BID 11/13/18 Furosemide [Lasix] 20 mg PO DAILY #1 tablet 11/13/18 Metformin HCl [Glucophage] 1 tab PO BID 11/13/18 Omeprazole 20 mg PO DAILY 11/13/18 Ropinirole HCl 1 tab PO HS 11/13/18 Midodrine HCl [Proamatine -] 7.5 mg PO DAILY@0700,1200,1700 #90 tablet 03/12/19
[2019-03-13 12:28] VITALS: BP 150/78; PULSE 82; TEMP 98.7
== END 2019-03-13 11:50 | disposition home or self-care (01) ==
LOC: JER 13:13 → UNDOADMOB 16:40 → JERBED 16:40 → INTOOBSV 16:40 → JERBED 19:14 → J4S 20:28
PROVIDERS: ADMIT Internal Medicine; ATTEND Internal Medicine
PROC: 3E033GC Introduction of Other Therapeutic Substance into Peripheral Vein, Percutaneous Approach (ICD-10-PCS; principal; 2019-03-10)
PROC: 3E0337Z Introduction of Electrolytic and Water Balance Substance into Peripheral Vein, Percutaneous Approach (ICD-10-PCS; 2019-03-10)
DX: G43.909 Migraine, unspecified, not intractable, without status migrainosus (principal); G90.3 Multi-system degeneration of the autonomic nervous system; G93.89 Other specified disorders of brain; I10 Essential (primary) hypertension; G20 Parkinson's disease; F02.80 Dementia in other diseases classified elsewhere, unspecified severity, without behavioral disturbance, psychotic disturbance, mood disturbance, and anxiety; E78.5 Hyperlipidemia, unspecified; E11.42 Type 2 diabetes mellitus with diabetic polyneuropathy; E11.43 Type 2 diabetes mellitus with diabetic autonomic (poly)neuropathy; Z79.84 Long term (current) use of oral hypoglycemic drugs; G25.81 Restless legs syndrome; Z79.01 Long term (current) use of anticoagulants; Z86.718 Personal history of other venous thrombosis and embolism; Z85.3 Personal history of malignant neoplasm of breast; Z86.73 Personal history of transient ischemic attack (TIA), and cerebral infarction without residual deficits; Z91.041 Radiographic dye allergy status
CPT/HCPCS: 36415; 70450-TC; 70551-TC; 80053; 82550; 82962; 84484; 85025; 85610; 85730; 93005; 93010; 96361; 96374; 99284-25; G0378

== ENCOUNTER 2019-05-05 06:29 | Inpatient (IN) | payer OTHER ==
--- NOTE | 2019-05-05 06:34 | PDOC ---
Attending Attestation - Resident Resident Name: Kory Rankin - ED Attending Attestation I have performed the following: I have examined & evaluated the patient, The case was reviewed & discussed with the resident, I agree w/resident's findings & plan - HPI HPI: 05/05/19 06:44 Pt was relatively unresponsive when family went to wake her up and give her her meds this AM. - Physicial Exam PE: 05/05/19 06:45 Pt is answering toher name and she knows she is in the hospital. But doesn't recall date. She has a hx of dementia that is progressing. SHe has no fever, no systemic signs. - Medical Decision Making 05/05/19 06:46 Pt will have labs, CT head, Stroke scale, and she will be signed out to the morning ER doc.
[2019-05-05 06:41] VITALS: BMI 28.2
--- NOTE | 2019-05-05 07:01 | PDOC ---
History of Present Illness - General Chief Complaint: Altered Mental Status Stated Complaint: POSSIBLE STROKE Time Seen by Provider: 05/05/19 06:34 - History of Present Illness Initial Comments: 05/05/19 06:56 78f pmh of dementia, htn, dm2 sent by ems for evaluation for ams and weakness. LAst known normal was 9pm, then at 5am when her grandson came to give her her meds she was unable to awake. Ems was then called and she was immediately brought to our ED. Recently started new medication to help her sleep. 05/05/19 06:59 Patient on Eliquis. Past History - Past Medical History Allergies/Adverse Reactions: Allergies Allergy/AdvReac Type Severity Reaction Status Date / Time Iodinated Contrast Media Allergy Verified 03/10/19 13:25 [Iodinated Contrast- Oral and IV Dye] Home Medications: Ambulatory Orders Apixaban [Eliquis] 2.5 mg PO BID 11/12/18 Atorvastatin Ca [Lipitor] 10 mg PO HS 11/12/18 Enalapril Maleate [Vasotec] 20 mg PO BID 11/12/18 Anastrozole [Arimidex -] 1 tab PO DAILY 11/13/18 Carbidopa/Levodopa [Carbidopa-Levo ER 50-200 Tab] 1 tab PO BID 11/13/18 Furosemide [Lasix] 20 mg PO DAILY #1 tablet 11/13/18 Metformin HCl [Glucophage] 1 tab PO BID 11/13/18 Anastrozole [Arimidex] 1 mg PO DAILY 05/05/19 Droxidopa [Northera] 300 mg PO TID 05/05/19 Omeprazole 20 mg PO DAILY 05/05/19 Pimavanserin Tartrate [Nuplazid] 34 mg PO DAILY 05/05/19 Quetiapine Fumarate [Seroquel -] 25 mg PO HS 05/05/19 Anemia: No Asthma: No Cancer: Yes ((R)LUMPECTOMY 2015 - RADIATION [place]) Cardiac Disorders: No CVA: Yes (CVA "MINI" 2015) COPD: No CHF: Yes Dementia: Yes ("OWNS") Diabetes: Yes GI Disorders: No Disorders: No HTN: Yes Hypercholesterolemia: Yes Liver Disease: No Seizures: No Thyroid Disease: No - Surgical History Abdominal Surgery: No Appendectomy: No Cardiac Surgery: No Cholecystectomy: No Lung Surgery: No Neurologic Surgery: No Orthopedic Surgery: Yes ((R)TKR 2009) - Immunization History Immunization Up to Date: Yes - Suicide/Smoking/Psychosocial Hx Smoking History: Never smoked Have you smoked in the past 12 months: No If you are a former smoker, when did you quit?: 40 years ago Information on smoking cessation initiated: No Hx Alcohol Use: No Drug/Substance Use Hx: No Substance Use Type: None Review of Systems - Review of Systems Able to Perform ROS?: No (altered,) *Physical Exam - Vital Signs Last Vital Signs Temp Pulse Resp BP Pulse Ox 90 18 142/80 96 05/05/19 06:35 05/05/19 06:35 05/05/19 06:35 05/05/19 06:35 - Physical Exam General Appearance: Yes: Nourished, Appropriately Dressed. No: Apparent Distress HEENT: positive: EOMI, JESSICA, Normal ENT Inspection Respiratory/Chest: positive: Lungs Clear, Normal Breath Sounds. negative: Chest Tender, Respiratory Distress Cardiovascular: positive: Regular Rhythm, Regular Rate, S1, S2 Gastrointestinal/Abdominal: positive: Normal Bowel Sounds, Flat, Soft. negative : Tender Extremity: positive: Normal Capillary Refill, Normal Inspection, Normal Range of Motion Integumentary: positive: Normal Color, Dry, Warm Neurologic: positive: Motor Strength 5/5. negative: Fully Oriented, Normal Mood /Affect ED Treatment Course - RADIOLOGY Radiology Studies Ordered: Category Date Time Status HEAD CT (STROKE) [CT] Stat CT Scan 05/05/19 06:34 Ordered Medical Decision Making - Medical Decision Making 05/05/19 07:12 Will evaluate for stroke/TIA using protocol. Out of the window for tpa Ct read pending. Patient signed out to Dr. Barth. *DC/Admit/Observation/Transfer Diagnosis at time of Disposition: Altered mental status - Referrals Referrals: Elder Wilkerson MD [Primary Care Provider] - - Patient Instructions - Post Discharge Activity NIH Stroke Scale - Last Known Well Date/Time & Onset Date Last Known Well: 05/04/19 Time Last Known Well: 21:00 - Initial Evaluation Level of consciousness: Alert Ask patient the month and their age: Answers both correctly Ask patient to open & close eyes; make fist and let go: Obeys both correctly Best gaze (horizontal eye movement): Normal Visual field testing: No visual field loss Facial paresis (Show teeth/raise eyebrows/close eyes tight): Normal symmetrical movement Motor Function: Left Arm: Normal Motor Function: Right Arm: Normal (extends arm 90 (or 45) degrees for 10 seconds without drift Motor Function: Left Leg: Normal (extends leg 30 degrees for 5 seconds without drift) Motor Function: Right Leg: Normal (extends leg 30 degrees for 5 seconds without drift) Sensory(Use pinprick test arms,legs,trunk,face/side to side): Normal Best language (Describe picture, name items, read sentences): Mild to moderate aphasia Dysarthria (read several words): Normal articulation Extinction and Inattention: Inattention or extinction bilaterally to one of the sensory modalities - Total Score NIH Stroke Scale Score: 2
--- NOTE | 2019-05-05 07:17 | EKG ---
Test Reason : Blood Pressure : / mmHG Vent. Rate : 066 BPM Atrial Rate : 066 BPM P-R Int : 180 ms QRS Dur : 094 ms QT Int : 430 ms P-R-T Axes : 043 -60 001 degrees QTc Int : 450 ms NORMAL SINUS RHYTHM LEFT AXIS DEVIATION POSSIBLE LATERAL INFARCT (CITED ON OR BEFORE 12-NOV-2018) INFERIOR INFARCT (CITED ON OR BEFORE 12-NOV-2018) ABNORMAL ECG WHEN COMPARED WITH ECG OF 10-MAR-2019 16:25, PREMATURE VENTRICULAR COMPLEXES ARE NO LONGER PRESENT QUESTIONABLE CHANGE IN INITIAL FORCES OF LATERAL LEADS ST NO LONGER DEPRESSED IN INFERIOR LEADS QT HAS SHORTENED Confirmed by WES HAN, ROMINA ([id number]) on 05/05/2019 7:16:45 AM Referred By: Janette ZHANG Confirmed By:ROMINA HARVEY MD
[2019-05-05 08:07] LABS: BASO % 0.8 % (0-2.0); EOS % 5.1 % (0-4.5); HEMATOCRIT 37.8 % (32.4-45.2); HEMOGLOBIN 12.5 GM/dL (10.7-15.3); LYMPH % 45.2 % (8-40); MCH 29.1 pg (25.7-33.7); MCHC 33.2 g/dl (32.0-36.0); MEAN CELL VOLUME 87.5 fl (80-96); MEAN PLT VOLUME 9.5 fl (7.5-11.1); MONO % 10.6 % (3.8-10.2); NEUT % 38.3 % (42.8-82.8); PLATELET COUNT 194 K/MM3 (134-434); RBC 4.32 M/mm3 (3.60-5.2); RDW 14.8 % (11.6-15.6); WHITE BLOOD COUNT 5.1 K/mm3 (4.0-10.0)
[2019-05-05] MEDS: SODIUM CHLORIDE 1,000 ML IV SCH (08:10)
[2019-05-05 08:17] LABS: INR 1.23 (0.83-1.09); PROTHROMBIN TIME (PATIENT) 14.5 SEC (9.7-13.0)
[2019-05-05 08:27] LABS: ALBUMIN 3.4 g/dl (3.4-5.0); BILIRUBIN,TOTAL 0.6 mg/dL (0.2-1); BLOOD UREA NITROGEN 16.7 mg/dL (7-18); CALCIUM 10.2 mg/dL (8.5-10.1); POTASSIUM 4.5 mmol/L (3.5-5.1); TOT PROT 6.8 g/dl (6.4-8.2)
--- NOTE | 2019-05-05 08:31 | PDOC ---
*Physical Exam - Vital Signs Last Vital Signs Temp Pulse Resp BP Pulse Ox 98.3 F 59 L 18 179/75 H 97 05/05/19 07:35 05/05/19 07:35 05/05/19 07:35 05/05/19 07:35 05/05/19 07:35 - Physical Exam Comments: HPI: Received sign out from resident Dr. Rankin. Pt is a 78 y/o female presenting for altered mental status. Son reports finding pt breathing but otherwise unarousable in bed around 5am. Spent 30 min attempting to wake pt without improvement before calling an ambulance. Reports the pt has passed out approx. 4 -5 times this weekend. Pt has a h/o of syncope, but normally only once per week. Pt was evaluated by Dr. Lam PA on 22 Apr 2019. Sinemet was increased to QID, Quetiapine, Northera, and Nuplazid was started. Son says all new medications were started on of last week. PCP: Dr. Wilkerson Neurologist: Dr. Hubbard Medical Hx: - Parkinson's w/ psychosis and dysautonomia - Diabetes, managed with Metformin - HLD - DVT, on Eliquis - H/o Breast CA Review of Systems: In addition to that documented in the HPI above, the additional ROS was obtained : Constitutional: Denies fevers or chills Head: Endorses chronic headache. Denies vision changes ENMT: Denies sore throat CV: Denies chest pain Resp: Denies SOB GI: Denies vomiting or diarrhea : Denies painful urination MSK: Denies recent trauma Skin: Denies new rashes Neuro: Denies new numbness or tingling or weakness Endocrine: Denies polyuria Heme: Denies bleeding or bruising Physical Examination: Constitutional: Elderly adult female in no acute distress or obvious discomfort. Found semi-fowlers on hospital bed. Speech was non-labored, non- pressured. Head: Normocephalic. No obvious external signs of trauma. Eyes: Pupils 3mm and PERRL bilaterally. EOMI. Sclerae white. Conjunctiva moist and not injected. Neck: Supple, trachea is midline. Cardiovascular / Chest: Regular rate and regular rhythm. No murmur, rubs, clicks , or gallops. Peripheral pulses: radial pulses full. Respiratory: Breathing unlabored. Equal chest rise and fall. Clear to auscultation bilaterally. No stridor, no wheezing, no rhonchi. Gastrointestinal: abdomen is soft, non-tender, non-distended. Neuro: Alert and oriented x3, unable to recall the events of this morning.Following commands. Moving all four extremities spontaneously. Flattening of left nasolabial fold. Drift in left lower extremity. Sensation to all four extremities intact. No nuchal rigidity. Skin: Warm, dry, and intact. Psych: Affect: appropriate. Mood: normal. MDM: *Reviewed vital signs, nursing notes, and prior visit documentation (if available). 78 y/o female presenting for resolving AMS versus syncope. Recent medication changes. Vitals remarkable for hypertension. Physical exam as described above. Family reports left side of face is normally asymmetrical. Pt walks with assistance only. CTH unremarkable for acute pathology. Labs unremarkable for derangement. Suspect likely medication side effect versus TIA (less likely). 09:[address] Darby, neurologist covering for pts neurologist Dr. Hubbard. Verbally appraised of the pts HPI, ED course , and current plan of management. Suggested symptoms were likely secondary to new medications but 09:[address] Rivera. Verbally appraised of the pts HPI, ED course, and current plan of management. Will admit pt to telemetry for syncope. No additional orders requested. Timmy Barth M.D., PGY2 Emergency Medicine Resident ED Treatment Course - LABORATORY CBC & Chemistry Diagram: 05/05/19 07:40 05/05/19 07:40 - ADDITIONAL ORDERS Additional order review: Laboratory Results 05/05/19 05/05/19 05/05/19 07:40 07:40 07:40 PT with INR 14.50 H INR 1.23 H Sodium 140 Potassium 4.5 Chloride 104 Carbon Dioxide 28 Anion Gap 7 L BUN 16.7 Creatinine 1.0 Est GFR (CKD-EPI)AfAm 62.93 Est GFR (CKD-EPI)NonAf 54.30 Random Glucose 120 H Calcium 10.2 H Total Bilirubin 0.6 AST 18 ALT 14 Alkaline Phosphatase 103 Total Protein 6.8 Albumin 3.4 Triglycerides 166 H Cholesterol 158 Total LDL Cholesterol 89 HDL Cholesterol 46 05/05/19 07:40 RBC 4.32 MCV 87.5 MCHC 33.2 RDW 14.8 MPV 9.5 Neutrophils % 38.3 L D Lymphocytes % 45.2 H Monocytes % 10.6 H Eosinophils % 5.1 H D Basophils % 0.8 *DC/Admit/Observation/Transfer Diagnosis at time of Disposition: Altered mental status Qualifiers: Altered mental status type: somnolence Qualified Code(s): R40.0 - Somnolence Hypertension Qualifiers: Hypertension type: unspecified Qualified Code(s): I10 - Essential (primary) hypertension - Discharge Dispostion Condition at time of disposition: Stable Decision to Admit order: Yes - Referrals - Patient Instructions - Post Discharge Activity
[2019-05-05 08:42] LABS: PH,URINE 5.5 (5.0-8.0); URINE APPEARANCE CLEAR; URINE BILIRUBIN NEGATIVE (NEGATIVE); URINE COLOR YELLOW; URINE GLUCOSE (UA) NEGATIVE (NEGATIVE); URINE KETONE NEGATIVE (NEGATIVE); URINE LEUK ESTERASE TRACE (NEGATIVE); URINE NITRITE NEGATIVE (NEGATIVE); URINE PROTEIN NEGATIVE (NEGATIVE)
--- NOTE | 2019-05-05 10:33 | EKG ---
Test Reason : Blood Pressure : / mmHG Vent. Rate : 063 BPM Atrial Rate : 063 BPM P-R Int : 164 ms QRS Dur : 106 ms QT Int : 446 ms P-R-T Axes : 058 -56 -22 degrees QTc Int : 456 ms NORMAL SINUS RHYTHM LEFT ANTERIOR FASCICULAR BLOCK POSSIBLE LATERAL INFARCT (CITED ON OR BEFORE 12-NOV-2018) CANNOT RULE OUT INFERIOR INFARCT (CITED ON OR BEFORE 12-NOV-2018) ABNORMAL ECG WHEN COMPARED WITH ECG OF 05-MAY-2019 06:56, NO SIGNIFICANT CHANGE WAS FOUND Confirmed by ROMINA HARVEY MD ([id number]) on 05/05/2019 10:33:27 AM Referred By: Confirmed By:ROMINA HARVEY MD
[2019-05-05] MEDS ORDERED: ENALAPRIL MALEATE 10 MG TABLET (FP) PO ONE (10:34)
[2019-05-05 11:01] LABS: EPI CELLS 1.1 /HPF (0-5/HPF); HYALINE CASTS 1.86 /lpf (0-8); URINE BACTERIA 8.1 /hpf (NEGATIVE); URINE RBC 0.4 /hpf (0-4); URINE WBC 3.9 /hpf (0-5)
[2019-05-05] MEDS ORDERED: LACTATED RINGERS SOLUTION 1000 ML INFUS.BAG IV ONE (11:31)
[2019-05-05] MEDS ORDERED: ACETAMINOPHEN 1000 MG/100 ML VIAL (NON FORMULARY) IVPB ONE (14:01)
[2019-05-05] MEDS ORDERED: ACETAMINOPHEN INJECTION 100 ML IVPB ONE (14:11)
--- NOTE | 2019-05-05 18:38 | HP ---
Admitting History and Physical - Primary Care Physician PCP: Evangelina Rivera - Admission History of Present Illness: 78f pmh of dementia, htn, dm2 sent by ems for evaluation for ams and weakness. LAst known normal was 9pm, then at 5am when her grandson came to give her her meds she was unable to awake. Ems was then called and she was immediately brought to our ED. Recently started new medication to help her sleep. - Past Medical History MAINTENANCE MGR: Yes: CVA, Parkinson's, Syncope Cardiovascular: Yes: Deep Vein Thrombosis, HTN, Hyperlipdemia Heme/Onc: Yes: Cancer, Other (dvt) Endocrine: Yes: Diabetes Mellitus - Smoking History Smoking history: Never smoked Have you smoked in the past 12 months: No If you are a former smoker, when did you quit?: 40 years ago - Alcohol/Substance Use Hx Alcohol Use: No - Social History ADL: Support Services History of Recent Travel: No Home Medications - Allergies Allergies/Adverse Reactions: Allergies Allergy/AdvReac Type Severity Reaction Status Date / Time Iodinated Contrast Media Allergy Verified 03/10/19 13:25 [Iodinated Contrast- Oral and IV Dye] - Home Medications Home Medications: Ambulatory Orders Apixaban [Eliquis] 2.5 mg PO BID 11/12/18 Atorvastatin Ca [Lipitor] 10 mg PO HS 11/12/18 Enalapril Maleate [Vasotec] 20 mg PO BID 11/12/18 Carbidopa/Levodopa [Carbidopa-Levo ER 50-200 Tab] 1 tab PO QID 11/13/18 Furosemide [Lasix] 20 mg PO DAILY #1 tablet 11/13/18 Metformin HCl [Glucophage] 1 tab PO BID 11/13/18 Anastrozole [Arimidex] 1 mg PO DAILY 05/05/19 Midodrine HCl 10 mg PO TID 05/05/19 Omeprazole 20 mg PO DAILY 05/05/19 Physical Examination Vital Signs: Vital Signs Temperature 98.3 F 05/05/19 07:35 Pulse Rate 65 05/05/19 15:58 Respiratory Rate 17 05/05/19 15:58 Blood Pressure 184/85 H 05/05/19 15:58 O2 Sat by Pulse Oximetry (%) 99 05/05/19 15:58 Constitutional: Yes: No Distress HENT: Yes: Atraumatic Neck: Yes: Supple Cardiovascular: Yes: Regular Rate and Rhythm Respiratory: Yes: CTA Bilaterally Gastrointestinal: Yes: Normal Bowel Sounds Extremities: Yes: WNL Edema: No Neurological: Yes: Alert, Oriented Labs: CBC, BMP 05/05/19 07:40 05/05/19 07:40 Problem List - Problems (1) Altered mental status Assessment/Plan: doing well Code(s): R41.82 - ALTERED MENTAL STATUS, UNSPECIFIED Qualifiers: Altered mental status type: somnolence Qualified Code(s): R40.0 - Somnolence (2) HTN (hypertension) Assessment/Plan: on meds monitor patient known to me from previous admission her bp goes down when she eats Code(s): I10 - ESSENTIAL (PRIMARY) HYPERTENSION Qualifiers: Hypertension type: unspecified Qualified Code(s): I10 - Essential (primary ) hypertension (3) DVT (deep venous thrombosis) Code(s): I82.409 - ACUTE EMBOLISM AND THOMBOS UNSP DEEP VN UNSP LOWER EXTREMITY (4) Diabetes Code(s): E11.9 - TYPE 2 DIABETES MELLITUS WITHOUT COMPLICATIONS (5) HLD (hyperlipidemia) Code(s): E78.5 - HYPERLIPIDEMIA, UNSPECIFIED (6) Parkinson disease Assessment/Plan: on sinemet dc other meds as per neuro Code(s): G20 - PARKINSON'S DISEASE Assessment/Plan Laboratory Tests 05/05/19 05/05/19 05/05/19 07:40 07:40 07:40 WBC 5.1 RBC 4.32 Hgb 12.5 Hct 37.8 MCV 87.5 MCH 29.1 MCHC 33.2 RDW 14.8 Plt Count 194 MPV 9.5 Absolute Neuts (auto) 2.0 Neutrophils % 38.3 L D Lymphocytes % 45.2 H Monocytes % 10.6 H Eosinophils % 5.1 H D Basophils % 0.8 Nucleated RBC % 0 PT with INR INR Sodium Potassium Chloride Carbon Dioxide Anion Gap BUN Creatinine Est GFR (CKD-EPI)AfAm Est GFR (CKD-EPI)NonAf Random Glucose Calcium Total Bilirubin AST ALT Alkaline Phosphatase Creatine Kinase 46 Troponin I < 0.02 Total Protein Albumin Triglycerides Cholesterol 158 Total LDL Cholesterol HDL Cholesterol Urine Color Urine Appearance Urine pH Ur Specific [place] Urine Protein Urine Glucose (UA) Urine Ketones Urine Blood Urine Nitrite Urine Bilirubin Urine Urobilinogen Ur Leukocyte Esterase Urine WBC (Auto) Urine RBC (Auto) Urine Casts (Auto) U Epithel Cells (Auto) Urine Bacteria (Auto) Blood Type Antibody Screen 05/05/19 05/05/19 05/05/19 07:40 07:40 07:40 WBC RBC Hgb Hct MCV MCH MCHC RDW Plt Count MPV Absolute Neuts (auto) Neutrophils % Lymphocytes % Monocytes % Eosinophils % Basophils % Nucleated RBC % PT with INR 14.50 H INR 1.23 H Sodium 140 Potassium 4.5 Chloride 104 Carbon Dioxide 28 Anion Gap 7 L BUN 16.7 Creatinine 1.0 Est GFR (CKD-EPI)AfAm 62.93 Est GFR (CKD-EPI)NonAf 54.30 Random Glucose 120 H Calcium 10.2 H Total Bilirubin 0.6 AST 18 ALT 14 Alkaline Phosphatase 103 Creatine Kinase Troponin I Total Protein 6.8 Albumin 3.4 Triglycerides 166 H Cholesterol Total LDL Cholesterol 89 HDL Cholesterol 46 Urine Color Urine Appearance Urine pH Ur Specific [place] Urine Protein Urine Glucose (UA) Urine Ketones Urine Blood Urine Nitrite Urine Bilirubin Urine Urobilinogen Ur Leukocyte Esterase Urine WBC (Auto) Urine RBC (Auto) Urine Casts (Auto) U Epithel Cells (Auto) Urine Bacteria (Auto) Blood Type A NEGATIVE Antibody Screen Negative 05/05/19 05/05/19 05/06/19 07:45 13:24 05:51 WBC RBC Hgb Hct MCV MCH MCHC RDW Plt Count MPV Absolute Neuts (auto) Neutrophils % Lymphocytes % Monocytes % Eosinophils % Basophils % Nucleated RBC % PT with INR INR Sodium Potassium Chloride Carbon Dioxide Anion Gap BUN Creatinine Est GFR (CKD-EPI)AfAm Est GFR (CKD-EPI)NonAf Random Glucose Calcium Total Bilirubin AST ALT Alkaline Phosphatase Creatine Kinase Troponin I 0.02 Total Protein Albumin Triglycerides Cholesterol Total LDL Cholesterol HDL Cholesterol Urine Color Yellow Urine Appearance Clear Urine pH 5.5 D Ur Specific [place] 1.011 Urine Protein Negative Urine Glucose (UA) Negative Urine Ketones Negative Urine Blood Negative Urine Nitrite Negative Urine Bilirubin Negative Urine Urobilinogen 1.0 Ur Leukocyte Esterase Trace Urine WBC (Auto) 3.9 Urine RBC (Auto) 0.4 Urine Casts (Auto) 1.86 U Epithel Cells (Auto) 1.1 Urine Bacteria (Auto) 8.1 Blood Type A NEGATIVE Antibody Screen Active Medications Generic Name Dose Route Start Last Admin Trade Name Freq PRN Reason Stop Dose Admin Acetaminophen 650 mg 05/05/19 22:23 05/06/19 00:09 Tylenol - PO 650 mg Q6H PRN Administration PAIN LEVEL 1-5 Anastrozole 1 mg 05/06/19 10:00 05/06/19 17:38 Arimidex - PO 1 mg DAILY BEVERLY Administration Apixaban 2.5 mg 05/05/19 22:00 05/06/19 11:01 Eliquis - PO 2.5 mg BID BEVERLY Administration Atorvastatin Calcium 10 mg 05/05/19 22:00 05/05/19 22:13 Lipitor - PO 10 mg HS BEVERLY Administration Enalapril Maleate 20 mg 05/05/19 22:00 05/06/19 11:03 Vasotec - PO 20 mg BID BEVERLY Administration Furosemide 20 mg 05/06/19 10:00 05/06/19 11:01 Lasix - PO 20 mg DAILY BEVERLY Administration Sodium Chloride 1,000 mls @ 42 mls/hr 05/05/19 07:00 05/06/19 07:00 Normal Saline - IV 42 mls/hr ASDIR BEVERLY Administration Metformin HCl 500 mg 05/05/19 22:00 05/06/19 06:04 Glucophage - PO 500 mg BID@0700,2200 BEVERLY Administration
[2019-05-05] MEDS ORDERED: ENALAPRIL MALEATE 5 MG TABLET (FP) ONE (19:37)
[2019-05-05] MEDS: ENALAPRIL MALEATE 10 MG TABLET (FP) PO SCH (21:00)
[2019-05-05] MEDS ORDERED: QUEtiapine FUMARATE 25 MG TABLET (FP) PO SCH (22:00)
[2019-05-05] MEDS ORDERED: PATIENT'S OWN MEDICATION (NON-FORMULARY) (Enalapril Maleate [Vasotec] 20 MG) PO SCH (22:00)
[2019-05-05] MEDS: metFORMIN HCL 500 MG TABLET (FP) PO SCH (22:13)
[2019-05-05] MEDS: APIXABAN 2.5 MG TABLET PO SCH (22:13)
[2019-05-05] MEDS: ATORVASTATIN CA 10 MG TABLET (FP) PO SCH (22:13)
[2019-05-05] MEDS ORDERED: ACETAMINOPHEN 325 MG TABLET (FP) PO PRN (22:23)
[2019-05-06] MEDS: metFORMIN HCL 500 MG TABLET (FP) PO SCH ×2 (06:04→23:12)
[2019-05-06] MEDS: SODIUM CHLORIDE 1,000 ML IV SCH (07:00)
--- NOTE | 2019-05-06 08:31 | CONSULT ---
Consult - text type - Consultation Consultation Note: Neurology History of Present Illness: 78 year old female with PMH of dementia, htn, dm2, sent by ems for evaluation for ams and weakness on day of admission. Last known normal was 9pm night prior to admission, then at 5am when her grandson came to give her her meds she was unable to awaken. Ems was then called and she was immediately brought to our ED. Recently started new medication to help her sleep. Head CT completed, indicates no acute changes. Patient remains somnolent this morning. Reportedly, the the patient had passed out approx. 4-5 times this weekend. Pt has a h/o of syncope, but normally only once per week. Pt was evaluated by Dr. Genaro FRANCOIS on 22 Apr 2019. Sinemet was increased to QID, Quetiapine, Northera , and Nuplazid was started. Son says all new medications were started on of last week. I was contacted by the emergency room and I recommended discontinuing the 3 new medications that were added as it is unclear which of them may have been causing consultation in her mental status. She can continue the Sinemet but I advised discontinuing the quetiapine, northera, and nuplazid for now and would recommend introducing them one at a time as an outpatient. We'll order MRI brain to evaluate for any structural abnormalities. - Past Medical History LEGAL REFEREE: Yes: CVA, Parkinson's, Syncope Cardiovascular: Yes: Deep Vein Thrombosis, HTN, Hyperlipdemia Heme/Onc: Yes: Cancer, Other (dvt) Endocrine: Yes: Diabetes Mellitus - Smoking History Smoking history: Never smoked Have you smoked in the past 12 months: No If you are a former smoker, when did you quit?: 40 years ago - Alcohol/Substance Use Hx Alcohol Use: No - Social History ADL: Support Services History of Recent Travel: No Family: HTN Home Medications - Allergies Allergies/Adverse Reactions: Allergies Allergy/AdvReac Type Severity Reaction Status Date / Time Iodinated Contrast Media Allergy Verified 03/10/19 13:25 [Iodinated Contrast- Oral and IV Dye] - Home Medications Home Medications: Ambulatory Orders Apixaban [Eliquis] 2.5 mg PO BID 11/12/18 Atorvastatin Ca [Lipitor] 10 mg PO HS 11/12/18 Enalapril Maleate [Vasotec] 20 mg PO BID 11/12/18 Anastrozole [Arimidex -] 1 tab PO DAILY 11/13/18 Carbidopa/Levodopa [Carbidopa-Levo ER 50-200 Tab] 1 tab PO QID 11/13/18 Furosemide [Lasix] 20 mg PO DAILY #1 tablet 11/13/18 Metformin HCl [Glucophage] 1 tab PO BID 11/13/18 Anastrozole [Arimidex] 1 mg PO DAILY 05/05/19 Droxidopa [Northera] 300 mg PO TID 05/05/19 Midodrine HCl 10 mg PO TID 05/05/19 Omeprazole 20 mg PO DAILY 05/05/19 Pimavanserin Tartrate [Nuplazid] 34 mg PO DAILY 05/05/19 Quetiapine Fumarate [Seroquel -] 25 mg PO HS 05/05/19 Physical Examination Vital Signs: Vital Signs Period Temp Pulse Resp BP Sys/Mixon Pulse Ox Last 24 Hr 98.3 F-98.6 F 62-79 14-97 83-206/40-102 95-100 CBCD WBC 5.1 K/mm3 (4.0-10.0) 05/05/19 07:40 RBC 4.32 M/mm3 (3.60-5.2) 05/05/19 07:40 Hgb 12.5 GM/dL (10.7-15.3) 05/05/19 07:40 Hct 37.8 % (32.4-45.2) 05/05/19 07:40 MCV 87.5 fl (80-96) 05/05/19 07:40 MCHC 33.2 g/dl (32.0-36.0) 05/05/19 07:40 RDW 14.8 % (11.6-15.6) 05/05/19 07:40 Plt Count 194 K/MM3 (134-434) 05/05/19 07:40 MPV 9.5 fl (7.5-11.1) 05/05/19 07:40 CMP Sodium 140 mmol/L (136-145) 05/05/19 07:40 Potassium 4.5 mmol/L (3.5-5.1) 05/05/19 07:40 Chloride 104 mmol/L (98-107) 05/05/19 07:40 Carbon Dioxide 28 mmol/L (21-32) 05/05/19 07:40 Anion Gap 7 MMOL/L (8-16) L 05/05/19 07:40 BUN 16.7 mg/dL (7-18) 05/05/19 07:40 Creatinine 1.0 mg/dL (0.55-1.3) 05/05/19 07:40 Random Glucose 120 mg/dL (74-106) H 05/05/19 07:40 Calcium 10.2 mg/dL (8.5-10.1) H 05/05/19 07:40 Total Bilirubin 0.6 mg/dL (0.2-1) 05/05/19 07:40 AST 18 U/L (15-37) 05/05/19 07:40 ALT 14 U/L (13-61) 05/05/19 07:40 Alkaline Phosphatase 103 U/L (45-117) 05/05/19 07:40 Total Protein 6.8 g/dl (6.4-8.2) 05/05/19 07:40 Albumin 3.4 g/dl (3.4-5.0) 05/05/19 07:40 CARDIAC ENZYMES Creatine Kinase 46 U/L (26-192) 05/05/19 07:40 Troponin I 0.02 ng/ml (0.00-0.05) 05/06/19 05:51 PLAN/ASSESSMENT 78 year old female with PMH of dementia, htn, dm2, sent by ems for evaluation for ams and weakness on day of admission. Last known normal was 9pm night prior to admission, then at 5am when her grandson came to give her her meds she was unable to awaken. Ems was then called and she was immediately brought to our ED. Recently started new medication to help her sleep. Head CT completed, indicates no acute changes. Patient remains somnolent this morning. Reportedly, the the patient had passed out approx. 4-5 times this weekend. Pt has a h/o of syncope, but normally only once per week. Pt was evaluated by Dr. Genaro FRANCOIS on 22 Apr 2019. Sinemet was increased to QID, Quetiapine, Northera , and Nuplazid was started. Son says all new medications were started on of last week. I was contacted by the emergency room and I recommended discontinuing the 3 new medications that were added as it is unclear which of them may have been causing consultation in her mental status. She can continue the Sinemet but I advised discontinuing the quetiapine, northera, and nuplazid for now and would recommend introducing them one at a time as an outpatient. We'll order MRI brain to evaluate for any structural abnormalities. Monitor mental status, maintain adequate hydration, monitor blood pressure and maintain normotensive range.
[2019-05-06] MEDS ORDERED: FUROSEMIDE 20 MG TABLET (FP) PO SCH (10:00)
[2019-05-06] MEDS: APIXABAN 2.5 MG TABLET PO SCH ×2 (11:01→23:13)
[2019-05-06] MEDS: ENALAPRIL MALEATE 10 MG TABLET (FP) PO SCH ×2 (11:03→23:13)
[2019-05-06] MEDS: ANASTROZOLE 1 MG TABLET PO SCH (17:38)
--- NOTE | 2019-05-06 18:27 | PN ---
Progress Note, Physician History of Present Illness: doing well - Current Medication List Current Medications: Active Medications Acetaminophen (Tylenol -) 650 mg PO Q6H PRN PRN Reason: PAIN LEVEL 1-5 Last Admin: 05/06/19 00:09 Dose: 650 mg Anastrozole (Arimidex -) 1 mg PO DAILY [facility] Last Admin: 05/06/19 17:38 Dose: 1 mg Apixaban (Eliquis -) 2.5 mg PO BID [facility] Last Admin: 05/06/19 11:01 Dose: 2.5 mg Atorvastatin Calcium (Lipitor -) 10 mg PO HS [facility] Last Admin: 05/05/19 22:13 Dose: 10 mg Carbidopa/Levodopa (Sinemet *Cr* 50/200 -) 1 combo PO QID [facility] Enalapril Maleate (Vasotec -) 20 mg PO BID [facility] Last Admin: 05/06/19 11:03 Dose: 20 mg Furosemide (Lasix -) 20 mg PO DAILY [facility] Last Admin: 05/06/19 11:01 Dose: 20 mg Metformin HCl (Glucophage -) 500 mg PO BID@0700,2200 [facility] Last Admin: 05/06/19 06:04 Dose: 500 mg - Objective Vital Signs: Vital Signs Temperature 97.6 F 05/06/19 17:05 Pulse Rate 99 H 05/06/19 17:05 Respiratory Rate 20 05/06/19 17:05 Blood Pressure 165/97 05/06/19 17:05 O2 Sat by Pulse Oximetry (%) 95 05/06/19 09:00 Constitutional: Yes: No Distress HENT: Yes: Atraumatic Neck: Yes: Supple Cardiovascular: Yes: Regular Rate and Rhythm Respiratory: Yes: CTA Bilaterally Gastrointestinal: Yes: Normal Bowel Sounds Extremities: Yes: WNL Edema: No Peripheral Pulses WNL: Yes Neurological: Yes: Alert Labs: CBC, BMP 05/05/19 07:40 05/05/19 07:40 INR, PTT INR 1.23 (0.83-1.09) H 05/05/19 07:40 Problem List - Problems (1) Altered mental status Assessment/Plan: doing well Code(s): R41.82 - ALTERED MENTAL STATUS, UNSPECIFIED Qualifiers: Altered mental status type: somnolence Qualified Code(s): R40.0 - Somnolence (2) HTN (hypertension) Assessment/Plan: on meds monitor patient known to me from previous admission her bp goes down when she eats Code(s): I10 - ESSENTIAL (PRIMARY) HYPERTENSION Qualifiers: Hypertension type: unspecified Qualified Code(s): I10 - Essential (primary ) hypertension (3) DVT (deep venous thrombosis) Code(s): I82.409 - ACUTE EMBOLISM AND THOMBOS UNSP DEEP VN UNSP LOWER EXTREMITY (4) Diabetes Code(s): E11.9 - TYPE 2 DIABETES MELLITUS WITHOUT COMPLICATIONS (5) HLD (hyperlipidemia) Code(s): E78.5 - HYPERLIPIDEMIA, UNSPECIFIED (6) Parkinson disease Assessment/Plan: on sinemet dc other meds as per neuro Code(s): G20 - PARKINSON'S DISEASE
[2019-05-06] MEDS: ATORVASTATIN CA 10 MG TABLET (FP) PO SCH (23:12)
[2019-05-07] MEDS: metFORMIN HCL 500 MG TABLET (FP) PO SCH (06:26)
[2019-05-07 08:25] LABS: BASO % 0.8 % (0-2.0); EOS % 0.7 % (0-4.5); HEMATOCRIT 37.4 % (32.4-45.2); HEMOGLOBIN 12.5 GM/dL (10.7-15.3); LYMPH % 19.7 % (8-40); MCH 28.9 pg (25.7-33.7); MCHC 33.3 g/dl (32.0-36.0); MEAN CELL VOLUME 86.8 fl (80-96); MEAN PLT VOLUME 9.3 fl (7.5-11.1); MONO % 5.6 % (3.8-10.2); NEUT % 73.2 % (42.8-82.8); PLATELET COUNT 192 K/MM3 (134-434); RBC 4.31 M/mm3 (3.60-5.2); RDW 14.6 % (11.6-15.6); WHITE BLOOD COUNT 10.1 K/mm3 (4.0-10.0)
--- NOTE | 2019-05-07 08:29 | PN ---
Progress Note (short form) - Note Progress Note: Neurology History of Present Illness: 78 year old female with PMH of dementia, htn, dm2, sent by ems for evaluation for ams and weakness on day of admission. Last known normal was 9pm night prior to admission, then at 5am when her grandson came to give her her meds she was unable to awaken. Ems was then called and she was immediately brought to our ED. Recently started new medication to help her sleep. Head CT completed, indicates no acute changes. Patient remains somnolent this morning. Reportedly, the the patient had passed out approx. 4-5 times this weekend. Pt has a h/o of syncope, but normally only once per week. Pt was evaluated by Dr. Lam PA on 22 Apr 2019. Sinemet was increased to QID, Quetiapine, Northera , and Nuplazid was started. Son says all new medications were started on of last week. I was contacted by the emergency room and I recommended discontinuing the 3 new medications that were added as it is unclear which of them may have been causing consultation in her mental status. She can continue the Sinemet but I advised discontinuing the quetiapine, northera, and nuplazid for now and would recommend introducing them one at a time as an outpatient. Jamilah rreportedly became more awake and alert yesterday and therefore we discontinued the MRI of the brain. However, ordered noncontrast CT to confirm no structural abnormalities. Was contacted by the nurse in the evening and spoke to the son to explain rationale behind repeat imaging as he was reluctant to have CAT scan completed again. I explained that we want to confirm no acute changes that may have not been seen on the initial CT. Was trying to avoid lengthy MRI of the brain which would not provide any significant added information. CT of the head was completed and did not show any structural abnormalities. The patient remains awake alert and interactive this morning. Discussed with nurse and may be for possible discharge. I recommend outpatient follow-up with Dr. Hubbard and reinitiation of medications as per his management. - Allergies Allergies/Adverse Reactions: Allergies Allergy/AdvReac Type Severity Reaction Status Date / Time Iodinated Contrast Media Allergy Verified 03/10/19 13:25 [Iodinated Contrast- Oral and IV Dye] Active Medications Acetaminophen (Tylenol -) 650 mg PO Q6H PRN PRN Reason: PAIN LEVEL 1-5 Last Admin: 05/06/19 00:09 Dose: 650 mg Anastrozole (Arimidex -) 1 mg PO DAILY [facility] Last Admin: 05/06/19 17:38 Dose: 1 mg Apixaban (Eliquis -) 2.5 mg PO BID [facility] Last Admin: 05/06/19 23:13 Dose: 2.5 mg Atorvastatin Calcium (Lipitor -) 10 mg PO HS [facility] Last Admin: 05/06/19 23:12 Dose: 10 mg Carbidopa/Levodopa (Sinemet *Cr* 50/200 -) 1 combo PO QID [facility] Last Admin: 05/06/19 23:13 Dose: 1 combo Enalapril Maleate (Vasotec -) 20 mg PO BID [facility] Last Admin: 05/06/19 23:13 Dose: 20 mg Metformin HCl (Glucophage -) 500 mg PO BID@0700,2200 [facility] Last Admin: 05/07/19 06:26 Dose: 500 mg Midodrine (Proamatine -) 10 mg PO TID-MID [facility] Physical Examination Vital Signs: Vital Signs Period Temp Pulse Resp BP Sys/Mixon Pulse Ox Last 24 Hr 97.6 F-99.0 F 57-99 20-20 142-209/76-102 95-99 Gen: Awake, alert, responds to questions appropriately Card: RRR, nml S1,S2 Resp: Normal symmetric effort, lungs clear to auscultation Abdomen: Soft, nontender, bowel sounds active Musculoskeletal: Adequate range of motion without significant deformity Head atraumatic and normocephalic CN: PERRL, EOMI intact, no apparent facial droop, no abnormalities in facial sensation, palate elevates, uvula and tongue midline Motor: LUE tremor noted, coghweeling mild to moderate, Sensory: Intact to Temperature, in all extremities Reflexes: 2+ biceps, brachioradialis, patellar, achillies Coordination: Intact on dnkexh-pvfo-bitosk testing CBCD WBC 10.1 K/mm3 (4.0-10.0) H 05/07/19 08:00 RBC 4.31 M/mm3 (3.60-5.2) 05/07/19 08:00 Hgb 12.5 GM/dL (10.7-15.3) 05/07/19 08:00 Hct 37.4 % (32.4-45.2) 05/07/19 08:00 MCV 86.8 fl (80-96) 05/07/19 08:00 MCHC 33.3 g/dl (32.0-36.0) 05/07/19 08:00 RDW 14.6 % (11.6-15.6) 05/07/19 08:00 Plt Count 192 K/MM3 (134-434) 05/07/19 08:00 MPV 9.3 fl (7.5-11.1) 05/07/19 08:00 CMP Sodium 142 mmol/L (136-145) 05/07/19 08:00 Potassium 4.1 mmol/L (3.5-5.1) 05/07/19 08:00 Chloride 108 mmol/L (98-107) H 05/07/19 08:00 Carbon Dioxide 26 mmol/L (21-32) 05/07/19 08:00 Anion Gap 8 MMOL/L (8-16) 05/07/19 08:00 BUN 15.6 mg/dL (7-18) 05/07/19 08:00 Creatinine 0.9 mg/dL (0.55-1.3) 05/07/19 08:00 Random Glucose 115 mg/dL (74-106) H 05/07/19 08:00 Calcium 9.1 mg/dL (8.5-10.1) 05/07/19 08:00 Total Bilirubin 1.0 mg/dL (0.2-1) 05/07/19 08:00 AST 23 U/L (15-37) 05/07/19 08:00 ALT 9 U/L (13-61) L 05/07/19 08:00 Alkaline Phosphatase 92 U/L (45-117) 05/07/19 08:00 Total Protein 6.1 g/dl (6.4-8.2) L 05/07/19 08:00 Albumin 3.2 g/dl (3.4-5.0) L 05/07/19 08:00 CARDIAC ENZYMES Creatine Kinase 46 U/L (26-192) 05/05/19 07:40 Troponin I 0.02 ng/ml (0.00-0.05) 05/06/19 05:51 PLAN/ASSESSMENT 78 year old female with PMH of dementia, htn, dm2, sent by ems for evaluation for ams and weakness on day of admission. Last known normal was 9pm night prior to admission, then at 5am when her grandson came to give her her meds she was unable to awaken. Ems was then called and she was immediately brought to our ED. Recently started new medication to help her sleep. Head CT completed, indicates no acute changes. Patient remains somnolent this morning. Reportedly, the the patient had passed out approx. 4-5 times this weekend. Pt has a h/o of syncope, but normally only once per week. Pt was evaluated by Dr. Lam PA on 22 Apr 2019. Sinemet was increased to QID, Quetiapine, Northera , and Nuplazid was started. Son says all new medications were started on of last week. I was contacted by the emergency room and I recommended discontinuing the 3 new medications that were added as it is unclear which of them may have been causing consultation in her mental status. She can continue the Sinemet but I advised discontinuing the quetiapine, northera, and nuplazid for now and would recommend introducing them one at a time as an outpatient. Jamilah rreportedly became more awake and alert yesterday and therefore we discontinued the MRI of the brain. However, ordered noncontrast CT to confirm no structural abnormalities. Was contacted by the nurse in the evening and spoke to the son to explain rationale behind repeat imaging as he was reluctant to have CAT scan completed again. I explained that we want to confirm no acute changes that may have not been seen on the initial CT. Was trying to avoid lengthy MRI of the brain which would not provide any significant added information. CT of the head was completed and did not show any structural abnormalities. The patient remains awake alert and interactive this morning. Discussed with nurse and may be for possible discharge. I recommend outpatient follow-up with Dr. Hubbard and reinitiation of medications as per his management. Monitor mental status, maintain adequate hydration, monitor blood pressure and maintain normotensive range.
[2019-05-07 08:48] LABS: ALBUMIN 3.2 g/dl (3.4-5.0); BLOOD UREA NITROGEN 15.6 mg/dL (7-18); CALCIUM 9.1 mg/dL (8.5-10.1); CREATININE 0.9 mg/dL (0.55-1.3); POTASSIUM 4.1 mmol/L (3.5-5.1); TOT PROT 6.1 g/dl (6.4-8.2)
[2019-05-07] MEDS ORDERED: PT OWN MED DRAWER 7, Y5N ONE (09:17)
[2019-05-07] MEDS: MIDODRINE HCL 5 MG TABLET PO SCH ×2 (10:43→14:45)
[2019-05-07] MEDS: ENALAPRIL MALEATE 10 MG TABLET (FP) PO SCH (10:43)
[2019-05-07] MEDS: APIXABAN 2.5 MG TABLET PO SCH (10:43)
[2019-05-07] MEDS: ANASTROZOLE 1 MG TABLET PO SCH (10:44)
--- NOTE | 2019-05-07 14:14 | CON.CARD ---
Consult Consult Specialty:: radiology Referred by:: Paige Reason for Consultation:: syncope - History of Present Illness Chief Complaint: Found unconcious History of Present Illness: The patient is a 78-year-old female with dementia, hypertension, hyperlipidemia , DVT on Eliquis,iabetes, Parkinson's disease, breast cancer, stroke, recurrent syncope, normal left ventricular systolic function on recent echo normal myocardial perfusionon recent nuclear stress test, who was found unresponsive by family.The patient is alert but confused. Not following commands.She is in no apparent distress. 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) ADL: Support Services History of Recent Travel: No Home Medications - Allergies Allergies/Adverse Reactions: Allergies Allergy/AdvReac Type Severity Reaction Status Date / Time Iodinated Contrast Media Allergy Verified 03/10/19 13:25 [Iodinated Contrast- Oral and IV Dye] - Home Medications Home Medications: Ambulatory Orders Apixaban [Eliquis] 2.5 mg PO BID 11/12/18 Atorvastatin Ca [Lipitor] 10 mg PO HS 11/12/18 Enalapril Maleate [Vasotec] 20 mg PO BID 11/12/18 Carbidopa/Levodopa [Carbidopa-Levo ER 50-200 Tab] 1 tab PO QID 11/13/18 Furosemide [Lasix] 20 mg PO DAILY #1 tablet 11/13/18 Metformin HCl [Glucophage] 1 tab PO BID 11/13/18 Anastrozole [Arimidex] 1 mg PO DAILY 05/05/19 Midodrine HCl 10 mg PO TID 05/05/19 Omeprazole 20 mg PO DAILY 05/05/19 Review of Systems - Review of Systems Constitutional: reports: No Symptoms Eyes: reports: No Symptoms HENT: reports: No Symptoms Neck: reports: No Symptoms Cardiovascular: reports: No Symptoms Respiratory: reports: No Symptoms Gastrointestinal: reports: No Symptoms Genitourinary: reports: No Symptoms Breasts: reports: No Symptoms Reported Musculoskeletal: reports: No Symptoms Integumentary: reports: No Symptoms Neurological: reports: Confusion, Syncope Endocrine: reports: No Symptoms Hematology/Lymphatic: reports: No Symptoms Psychiatric: reports: No Symptoms Vital Signs: Vital Signs Temperature 98.7 F 05/07/19 10:00 Pulse Rate 88 05/07/19 10:00 Respiratory Rate 22 H 05/07/19 10:00 Blood Pressure 149/87 05/07/19 10:00 O2 Sat by Pulse Oximetry (%) 97 05/07/19 09:00 Constitutional: Yes: Well Nourished, No Distress, Calm Eyes: Yes: WNL HENT: Yes: WNL, Atraumatic, Normocephalic Neck: Yes: WNL, Supple, Trachea Midline Respiratory: Yes: WNL, Regular, CTA Bilaterally Gastrointestinal: Yes: WNL, Normal Bowel Sounds, Soft Renal/: Yes: WNL Cardiovascular: Yes: WNL, Regular Rate and Rhythm JVD: No Carotid Bruit: No PMI: Non-Displaced Heart Sounds: Yes: S1, S2 Murmur: Yes: Systolic Murmur, Grade 2 Musculoskeletal: Yes: WNL Extremities: Yes: WNL Edema: No Peripheral Pulses: 1+ Left Carotid, 1+ Right Carotid, 1+ Left Femoral, 1+ Right Femoral, 1+ Left Popliteal, 1+ Right Popliteal, 1+ Left Doralis Pedis, 1+ Right Dorsalis Pedis Neurological: Yes: Alert, Confusion Psychiatric: Yes: Alert - Other Data Labs, Other Data: CBC, BMP 05/07/19 08:00 05/07/19 08:00 INR, PTT INR 1.23 (0.83-1.09) H 05/05/19 07:40 Assessment/Plan The patient is a 78-year-old female with dementia, hypertension, hyperlipidemia , DVT on Eliquis,iabetes, Parkinson's disease, breast cancer, stroke, recurrent syncope, normal left ventricular systolic function on recent echo normal myocardial perfusionon recent nuclear stress test, who was found unresponsive by family.The patient is alert but confused. Not following commands.She is in no apparent distress. There is no evidence of ischemia nor acute coronary syndrome.No arrhythmias documented on telemetry at this point. there is no need for further cardiac workup at this point. Please continue her current regimen. May stop telemetry. Please do not hesitate to call us PRN.
[2019-05-07 15:34] VITALS: BP 171/86; PULSE 109; TEMP 99.5
--- NOTE | 2019-05-07 18:50 | DS ---
Physical Examination Vital Signs: Vital Signs Temperature 99.5 F 05/07/19 14:00 Pulse Rate 109 H 05/07/19 14:00 Respiratory Rate 20 05/07/19 14:00 Blood Pressure 171/86 H 05/07/19 14:00 O2 Sat by Pulse Oximetry (%) 97 05/07/19 09:00 Constitutional: Yes: No Distress HENT: Yes: Atraumatic Neck: Yes: Supple Cardiovascular: Yes: Regular Rate and Rhythm Respiratory: Yes: CTA Bilaterally Gastrointestinal: Yes: Normal Bowel Sounds Extremities: Yes: WNL Neurological: Yes: Alert, Oriented Labs: CBC, BMP 05/07/19 08:00 05/07/19 08:00 Discharge Summary Reason For Visit: SYNCOPE,HYPERTENSION medication affect, too many meds startedat the same time refer to neurology note for detail Condition: Stable - Instructions Diet, Activity, Other Instructions: see neurology for other meds see dc meds list...only continue these Referrals: He Hubbard MD [Staff Physician] - Disposition: HOME - Home Medications Comprehensive Discharge Medication List: Ambulatory Orders Apixaban [Eliquis] 2.5 mg PO BID 11/12/18 Atorvastatin Ca [Lipitor] 10 mg PO HS 11/12/18 Enalapril Maleate [Vasotec] 20 mg PO BID 11/12/18 Carbidopa/Levodopa [Carbidopa-Levo ER 50-200 Tab] 1 tab PO QID 11/13/18 Furosemide [Lasix] 20 mg PO DAILY #1 tablet 11/13/18 Metformin HCl [Glucophage] 1 tab PO BID 11/13/18 Anastrozole [Arimidex] 1 mg PO DAILY 05/05/19 Midodrine HCl 10 mg PO TID 05/05/19 Omeprazole 20 mg PO DAILY 05/05/19 [facility] i discussed with son in detail care plan yesterday follow up dr aleah monroe
== END 2019-05-07 17:37 | disposition home or self-care (01) | DRG 918 ==
LOC: JER 06:29 → JERBED 09:36 → J4W 21:39
PROVIDERS: ADMIT Internal Medicine; ATTEND Internal Medicine
DX: T43.591A Poisoning by other antipsychotics and neuroleptics, accidental (unintentional), initial encounter (principal); R41.82 Altered mental status, unspecified; G20 Parkinson's disease; F02.80 Dementia in other diseases classified elsewhere, unspecified severity, without behavioral disturbance, psychotic disturbance, mood disturbance, and anxiety; E11.9 Type 2 diabetes mellitus without complications; E78.5 Hyperlipidemia, unspecified; R55 Syncope and collapse; I10 Essential (primary) hypertension; Z86.73 Personal history of transient ischemic attack (TIA), and cerebral infarction without residual deficits; Z86.718 Personal history of other venous thrombosis and embolism; Z85.3 Personal history of malignant neoplasm of breast
CPT/HCPCS: 36415; 70450-TC; 80053; 81003; 82465; 82550; 82962; 83718; 83721; 84478; 84484; 85025; 85610; 86850; 86900; 86901; 93005; 93010; 99285-25; J0131; J7030

== ENCOUNTER 2019-06-07 10:14 | Emergency (ER) | payer OTHER ==
--- NOTE | 2019-06-07 10:17 | PDOC ---
History of Present Illness - General Stated Complaint: ALTERED MENTAL STATUS Time Seen by Provider: 06/07/19 10:17 - History of Present Illness Initial Comments: 06/07/19 10:18 78f pmh of parkinson's dementia w/ psychotic symptoms, htn, dm2, prior dvts (on eliquis) who presents with 2 days of altered mental status and not sleeping. At baseline the patient is aox3 but per son the patient is significantly disoriented. Patient has limited ability ambulating. Son denies fever, cough, congestion, diarrhea. ROS - limited 2/2 dementia and AMS PE GENERAL: Awake, alert, and fully oriented, in no acute distress HEAD: No signs of trauma, normocephalic, atraumatic EYES: PERRLA, EOMI, sclera anicteric, conjunctiva clear ENT: oropharynx clear without exudates. Moist mucosa NECK: Normal ROM, supple LUNGS: No distress, speaks full sentences, clear to auscultation bilaterally HEART: Regular rate and rhythm, normal S1 and S2, no murmurs, rubs or gallops, peripheral pulses normal and equal bilaterally. ABDOMEN: Soft, nontender No guarding, no rebound. No masses EXTREMITIES : Normal inspection, Normal range of motion, no edema. No clubbing or cyanosis. NEUROLOGICAL: Cranial nerves II through XII grossly intact. Normal speech, no focal sensorimotor deficits SKIN: Warm, Dry, normal turgor, no rashes or lesions noted MDM DDX including but not limited to: r/o infectious r/o intracranial pathology ED Course: labs, urine, head ct, cxr all within normal Discussed case with Dr. Darby Neurology who recommends seroquel 25mg for 1 week until the patien can be seen by Dr. Hubbard. Patient's son reports that patient previously did not have a good experience with Seroquel Per Dr. Darby will dose Depakote 250mg QHS ffor 7 days d/c to family care strict return precuations Sapna Castellano, PGY2 Emergency Medicine Past History - Past Medical History Allergies/Adverse Reactions: Allergies Allergy/AdvReac Type Severity Reaction Status Date / Time Iodinated Contrast Media Allergy Verified 03/10/19 13:25 [Iodinated Contrast- Oral and IV Dye] Home Medications: Ambulatory Orders Apixaban [Eliquis] 2.5 mg PO BID 11/12/18 Atorvastatin Ca [Lipitor] 10 mg PO HS 11/12/18 Enalapril Maleate [Vasotec] 20 mg PO BID 11/12/18 Carbidopa/Levodopa [Carbidopa-Levo ER 50-200 Tab] 1 tab PO QID 11/13/18 Furosemide [Lasix] 20 mg PO DAILY #1 tablet 11/13/18 Metformin HCl [Glucophage] 1 tab PO BID 11/13/18 Anastrozole [Arimidex] 1 mg PO DAILY 05/05/19 Midodrine HCl 10 mg PO TID 05/05/19 Omeprazole 20 mg PO DAILY 05/05/19 Divalproex [Depakote -] 250 mg PO DAILY #7 tablet.ec 06/07/19 Droxidopa [Northera] 300 mg PO TID 06/07/19 Pimavanserin Tartrate [Nuplazid] 34 mg PO DAILY 06/07/19 Anemia: No Asthma: No Cancer: Yes ((R)LUMPECTOMY 2014 - RADIATION [place]) Cardiac Disorders: No CVA: Yes (CVA "MINI" 2015) COPD: No CHF: Yes Dementia: Yes ("SUNDOWNS") Diabetes: Yes GI Disorders: No Disorders: No HTN: Yes Hypercholesterolemia: Yes Liver Disease: No Seizures: No Thyroid Disease: No - Surgical History Abdominal Surgery: No Appendectomy: No Cardiac Surgery: No Cholecystectomy: No Lung Surgery: No Neurologic Surgery: No Orthopedic Surgery: Yes ((R)TKR 2009) - Immunization History Immunization Up to Date: Yes - Psycho Social/Smoking Cessation Hx Smoking History: Never smoked Have you smoked in the past 12 months: No If you are a former smoker, when did you quit?: 40 years ago Hx Alcohol Use: No Drug/Substance Use Hx: No Substance Use Type: None ED Treatment Course - LABORATORY CBC & Chemistry Diagram: 06/07/19 11:15 06/07/19 11:15 Discharge - Discharge Information Problems reviewed: Yes Clinical Impression/Diagnosis: Insomnia, Delirium Condition: Stable Disposition: HOME - Admission No - Additional Discharge Information Prescriptions: Divalproex [Depakote -] 250 mg PO DAILY #7 tablet.ec - Follow up/Referral Referrals: Elder Stevenson [Primary Care Provider] - - Patient Discharge Instructions Patient Printed Discharge Instructions: DI for Insomnia Additional Instructions: Johanny was seen in the ED for trouble sleeping and changes in behavior. She had labwork and imaging done today that was largely unremarkable. She was prescribed Depakote to be taken at night for 1 week, until she can be seen her Neurologist Dr. Hubbard. She should return to the ED if she has further changes in behavior, falls, fevers or any other concerning symptoms. - Post Discharge Activity
--- NOTE | 2019-06-07 10:44 | PDOC ---
Attending Attestation - Resident Resident Name: Sapna Castellano - ED Attending Attestation I have performed the following: I have examined & evaluated the patient, The case was reviewed & discussed with the resident, I agree w/resident's findings & plan, Exceptions are as noted - HPI HPI: 06/07/19 10:43 Ms. Murdock is a 78 yo F who presents to the ER with son and aid due to confusion The patient has a h/o HTN, HLD, DVT, DM, Parkinson's disease and associated dysautonomia, post prandial syncope, migraine headaches. Per son, she has been awake since 2am on He brought her in today because she seems confused and is having hallucinations No fevers or chills No nausea vomiting or diarrhea Pt tolerating po with no difficulty No headache No focal weakness or numbness No cough 06/07/19 11:28 - Physicial Exam PE: 06/07/19 10:44 PE GENERAL: somnolent but arousable to questioning, HEAD: No signs of trauma, normocephalic, atraumatic EYES: PERRLA, EOMI, sclera anicteric, conjunctiva clear ENT: Moist mucosa LUNGS: No distress, speaks full sentences, clear to auscultation bilaterally HEART: Regular rate and rhythm, normal S1 and S2, no murmurs, rubs or gallop ABDOMEN: Soft, nontender, normoactive bowel sounds. EXTREMITIES : Normal inspection, Normal range of motion, no edema. NEUROLOGICAL: Cranial nerves II through XII grossly intact. Normal speech, normal gait, no focal sensorimotor deficits SKIN: Warm, Dry, normal turgor, no rashes or lesions noted 06/07/19 11:37 - Medical Decision Making 06/07/19 12:01 78 yo F h/o parkinsons presenting with AMS Pt noted to have alterations in mentation, hallucinations Per son, it seems to be related to pt not sleeping for days Will do: Labs CT head UA EKG Re Assess EKG : NSR rate of 61 bpm, LAD, no st elevation or depression, t wave inversions II, III, aVF 06/07/19 14:27 Laboratory Tests 06/07/19 06/07/19 06/07/19 11:15 11:15 11:15 WBC Hgb Hct Plt Count INR 1.07 BUN 15.6 Creatinine 0.8 Troponin I < 0.02 B-Natriuretic Peptide 490.2 H Urine Nitrite Ur Leukocyte Esterase Urine WBC (Auto) 06/07/19 06/07/19 11:15 13:50 WBC 5.2 Hgb 13.1 Hct 40.6 Plt Count 217 INR BUN Creatinine Troponin I B-Natriuretic Peptide Urine Nitrite Negative Ur Leukocyte Esterase 1+ H Urine WBC (Auto) 5 06/07/19 14:30 CT head - no acute ICH/Mass XRay Chest - no acute chest process, weak inspiration, wide mediastinum UA - 5wbc It is unclear that this represents an acute infectious process It seems most likely that this patients medications need adjustment In the past she has taken Quitiapine but per son, this caused her to be too sedated Call placed to dr Cazares Recommends seroquel Will present this to the family Pt to follow up with Dr Hubbard Will follow urine culture
[2019-06-07 11:43] VITALS: BP 186/72; PULSE 57; TEMP 97.6
[2019-06-07 11:47] VITALS: BMI 26.3
[2019-06-07 12:11] LABS: EOS % 2.2 % (0-4.5); HEMATOCRIT 40.6 % (32.4-45.2); HEMOGLOBIN 13.1 GM/dL (10.7-15.3); LYMPH % 32.8 % (8-40); MCH 28.8 pg (25.7-33.7); MCHC 32.2 g/dl (32.0-36.0); MEAN CELL VOLUME 89.5 fl (80-96); MEAN PLT VOLUME 9.6 fl (7.5-11.1); MONO % 7.4 % (3.8-10.2); NEUT % 56.6 % (42.8-82.8); PLATELET COUNT 217 K/MM3 (134-434); RBC 4.54 M/mm3 (3.60-5.2); RDW 15.3 % (11.6-15.6); WHITE BLOOD COUNT 5.2 K/mm3 (4.0-10.0)
[2019-06-07 12:30] LABS: INR 1.07 (0.83-1.09); PROTHROMBIN TIME (PATIENT) 12.6 SEC (9.7-13.0)
[2019-06-07 12:33] LABS: ACTIVATED PTT 44.4 SECONDS (25.2-36.5)
[2019-06-07 12:34] LABS: ALBUMIN 3.7 g/dl (3.4-5.0); BILIRUBIN,TOTAL 0.6 mg/dL (0.2-1); BLOOD UREA NITROGEN 15.6 mg/dL (7-18); CALCIUM 9.2 mg/dL (8.5-10.1); CREATININE 0.8 mg/dL (0.55-1.3); N-TERMINAL BNP 490.2 pg/ml (5-450); POTASSIUM 4.7 mmol/L (3.5-5.1); TOT PROT 7.4 g/dl (6.4-8.2)
[2019-06-07 14:02] LABS: EPI CELLS 1.4 /HPF (0-5/HPF); HYALINE CASTS 1 /lpf (0-8); URINE APPEARANCE CLEAR; URINE BACTERIA 2.7 /hpf (NEGATIVE); URINE BILIRUBIN NEGATIVE (NEGATIVE); URINE COLOR YELLOW; URINE GLUCOSE (UA) NEGATIVE (NEGATIVE); URINE KETONE TRACE (NEGATIVE); URINE LEUK ESTERASE 1+ (NEGATIVE); URINE NITRITE NEGATIVE (NEGATIVE); URINE PROTEIN NEGATIVE (NEGATIVE); URINE RBC 2 /hpf (0-4); URINE WBC 5 /hpf (0-5)
--- NOTE | 2019-06-07 14:53 | EKG ---
Test Reason : Blood Pressure : / mmHG Vent. Rate : 061 BPM Atrial Rate : 061 BPM P-R Int : 152 ms QRS Dur : 108 ms QT Int : 450 ms P-R-T Axes : 032 -54 -21 degrees QTc Int : 453 ms SINUS RHYTHM WITH PREMATURE ATRIAL COMPLEXES LEFT AXIS DEVIATION ANTEROLATERAL INFARCT (CITED ON OR BEFORE 12-NOV-2018) ABNORMAL ECG WHEN COMPARED WITH ECG OF 05-MAY-2019 08:31, PREMATURE ATRIAL COMPLEXES ARE NOW PRESENT QUESTIONABLE CHANGE IN INITIAL FORCES OF ANTERIOR LEADS Confirmed by MIRA HAN, ROSIO ([id number]) on 06/07/2019 2:53:21 PM Referred By: Confirmed By:ROSIO MEYERS MD
== END 2019-06-07 16:12 | disposition home or self-care (01) ==
LOC: JER 10:14
DX: G47.00 Insomnia, unspecified (principal); F29 Unspecified psychosis not due to a substance or known physiological condition; I11.0 Hypertensive heart disease with heart failure; I50.9 Heart failure, unspecified; E78.00 Pure hypercholesterolemia, unspecified; E11.9 Type 2 diabetes mellitus without complications; Z86.718 Personal history of other venous thrombosis and embolism; Z79.84 Long term (current) use of oral hypoglycemic drugs; F03.90 Unspecified dementia, unspecified severity, without behavioral disturbance, psychotic disturbance, mood disturbance, and anxiety; Z86.73 Personal history of transient ischemic attack (TIA), and cerebral infarction without residual deficits; Z79.01 Long term (current) use of anticoagulants; Z85.3 Personal history of malignant neoplasm of breast; Z96.651 Presence of right artificial knee joint; Z91.041 Radiographic dye allergy status
CPT/HCPCS: 36415; 70450-TC; 71045-TC-FY; 80053; 81003; 83880; 84484; 85025; 85610; 85730; 87086; 93005; 93010; 99284-25